=== PATIENT | male | born 1965 | race Caucasian/White ===

== ENCOUNTER 2020-11-30 14:57 | Inpatient (IN) | payer MEDICAID, OTHER ==
[~2020-11-30] VITALS: Ht 190.5 cm; Wt 86.8 kg
[2020-11-30] MEDS ORDERED: CEPH500C PO (15:05)
[2020-11-30] MEDS ORDERED: OXYC1TAB23 PO (15:05)
[2020-11-30] MEDS ORDERED: SUBO2MIS SL (15:05)
[2020-11-30 17:14] LABS: BASO % 0.6 % (0.0-1.0); EOS # 0.1 10^3/uL (0.0-0.5); EOS % 5.2 % (0.0-3.0); HEMATOCRIT 32.6 % (42.0-52.0); HEMOGLOBIN 10.7 g/dl (13.5-17.5); LYMPH # 0.4 10^3/uL (1.5-5.0); MEAN CORPUSCULAR HEMOGLOBIN 31.5 pg (27.0-33.0); MEAN CORPUSCULAR HGB CONC 32.8 g/dl (32.0-36.5); MEAN CORPUSCULAR VOLUME 95.9 fl (80.0-96.0); MONO # 0.2 10^3/uL (0.0-0.8); MONO % 14.3 % (2.0-8.0); NEUTROPHILS % 53.3 % (36.0-66.0); WHITE BLOOD COUNT 1.5 10^3/uL (4.0-10.0)
[2020-11-30 17:27] LABS: INR 1.2; PROTHROMBIN TIME 15.7 SECONDS (12.7-14.5)
[2020-11-30 17:28] LABS: PARTIAL THROMBOPLASTIN TIME 33.8 SECONDS (25.9-37.0)
[2020-11-30] MEDS ORDERED: HOME MED LIST COMPLETE! XX SCH (17:30)
[2020-11-30 17:32] LABS: RSV AMPLIFICATION NEGATIVE (NEGATIVE)
[2020-11-30 17:43] LABS: NEUTROPHILS # 0.8 10^3/uL (1.5-8.5); PLATELET COUNT, AUTOMATED 56 10^3/uL (150-450)
[2020-11-30 17:52] LABS: ALBUMIN 2.1 GM/DL (3.2-5.2); ALT/SGPT 29 U/L (12-78); BILIRUBIN,DIRECT 0.7 MG/DL (0.0-0.2); BILIRUBIN,TOTAL 1.1 MG/DL (0.2-1.0); BLOOD UREA NITROGEN 10 MG/DL (7-18); C REACTIVE PROTEIN QUANTITATIV 0.85 MG/DL (0.00-0.30); CALCIUM LEVEL 8.1 MG/DL (8.5-10.1); CARBON DIOXIDE LEVEL 30 MEQ/L (21-32); CHLORIDE LEVEL 105 MEQ/L (98-107); CK-MB VALUE MASS 2.1 NG/ML (<3.6); CPK CREATINE PHOSPHOKINASE 52 U/L (39-308); CREATININE FOR GFR 0.55 MG/DL (0.70-1.30); FREE T4 0.95 NG/DL (0.76-1.46); GLOMERULAR FILTRATION RATE > 60.0 (>56); GLUCOSE, FASTING 109 MG/DL (70-100); MB/CK RELATIVE INDEX 4.04 (< OR =4); NT-PRO BNP 346 PG/ML (<125); POTASSIUM SERUM 3.8 MEQ/L (3.5-5.1); SODIUM LEVEL 141 MEQ/L (136-145); TOTAL PROTEIN 7.9 GM/DL (6.4-8.2); TROPONIN I < 0.02 NG/ML (< 0.10)
[2020-11-30 18:01] LABS: ERYTHROCYTE SEDIMENTATION RATE 67 mm/hr (0-20)
[2020-11-30] MEDS ORDERED: ISOVUE-370 76% 100ML VIAL As Ordered ONE (18:01)
--- NOTE | 2020-11-30 18:32 | REP ---
INDICATION: edema r/o dvt COMPARISON: None. TECHNIQUE: Real time compression and duplex Doppler interrogation of the bilateral lower extremity deep venous system is performed. Compression ultrasound is performed of the bilateral peroneal and posterior tibial veins. FINDINGS: Bilaterally, the common femoral, superficial femoral and popliteal veins are fully compressible with transducer pressure and demonstrate normal spontaneous and phasic flow, without evidence of deep venous thrombosis. The peroneal and posterior tibial veins could not be seen due to body habitus. IMPRESSION: No evidence of deep venous thrombosis of the bilateral lower extremity femoral popliteal venous system. <Electronically signed by Gagandeep Mckay > 11/30/20 [id number]
[2020-11-30] MEDS ORDERED: ceFAZolin SOD 1 GM in D5W MINI-BAG PLUS 50 ML IV ONE (19:40)
[2020-11-30] MEDS ORDERED: MAALOX 30 ML SUSP *UDC PO PRN (19:50)
[2020-11-30] MEDS ORDERED: LORazepam 2 MG TAB PO PRN (19:50)
[2020-11-30] MEDS ORDERED: MOM 30ML SUSPENSION UDC PO PRN (19:50)
--- NOTE | 2020-11-30 19:54 | HPEPDOC ---
[facility] Medical History & Physical Date of Admission Nov 30, 2020 Date of Service: Nov 30, 2020 Attending Physician: JOANNE KHAN MD History and Physical TIME OF SERVICE: 815pm CHIEF COMPLAINT: leg pain HISTORY OF PRESENT ILLNESS: About 1 week ago was discharged from [facility] in [facility] after being admitted for management of RLE cellulitis. He was discharged with cephalexin and pain medications which he finished about 1 day ago. Today he came to our ER because the right lower leg pain, redness and swelling got worse and are spreading up the middle part of his right upper leg. He denied having fever, chills, nausea or vomiting. He has 2 scabs on his right leg one at the middle part of the ankle which has been picking and another one at the lateral part of the right upper leg. REVIEW OF SYSTEMS: 10-point review of systems negative except as listed in HPI PAST MEDICAL/ SURGICAL HISTORY: Hepatitis C (he reports being told that he was not a candidate for treatment and that his viral titres were low), Hepatosplenomegaly, Pancytopenia, abdominal biopsy FAMILY HISTORY: Cancer SOCIAL HISTORY: He recently moved back to the area from [facility], he smokes tobacco products, drinks alcohol and admits to using heroin and cocaine ALLERGIES: Please see below. HOME MEDICATIONS: Please see below. PHYSICAL EXAMINATION: Vital Signs Date Time Temp Pulse Resp B/P (MAP) Pulse Ox O2 Delivery O2 Flow Rate FiO2 11/30/20 14:57 98.0 95 20 123/78 (93) 100 Room Air GENERAL APPEARANCE: slim build / well developed/ NAD HEENT: temporal wasting / EOMI / MMM&P CARDIOVASCULAR: RRR/NMRG LUNGS: CTAB on RA ABDOMEN: contour flat MUSCULOSKELETAL: NCAT / VINICIO x 4 extremities INTEGUMENT: his is tanned/ has several tattoos / rubor, dalor and calor of the right lower leg / he also has a linear streak of rubor following the lymphatic tract along the medial aspect of the right upper leg / he has an open scab superficial to the right medial malleolus NEUROLOGICAL: CN 2-12 grossly intact / speech not dysarthric PSYCHIATRIC: A&O x 3 / able to understand and follow all commands LABORATORY DATA: IMAGING: RLE US IMPRESSION: No evidence of deep venous thrombosis of the bilateral lower extremity femoral popliteal venous system. CT chest final report pendingbut per there was hepatosplenomegaly and an opacity at the liver with recommendations to obtain MRI of the liver to better characterize the lesion. MICROBIOLOGY: Respiratory panel neg ASSESSMENT: is a 55 yr old w a hx of polysubstance abuse, pancytopenia, and Hep C (cleared infection ?) who is admitted primarily for evaluation of RLE pain, redness and swelling with lymphangitis. PLAN: 1 SIRS vs Sepsis 2/2 right lower leg redness pain and swelling with right upper leg lymphangitis Possibly due to cellulitis or malignancy or other cause TBD SIRs criteria include HR of 95 w WBC # of 1.5 The patient mentioned that the doctors at [facility] told him they were trying to figure out where his infection was coming from which further raises suspicion that this is not just cellulitis. The pattern of distribution which includes the lymph node tract is atypical for cellulitis. Additionally his ALT-70 Score to diagnose LE Cellulitis score is only 4 which indicates that this may not be cellulitis and that we should consult the Dermatology or ID service for additional recommendations. He is not c/o severe pain and the CPK is wnl therefore this is unlikely necrotizing fasciitis Plan: admit to medical floor / fall precautions / elevate leg / f/u blood cx / c/w Cefazolin for MSSA and beta hemolytic strep + Vancomycin for MRSA and beta hemolytic strep / will ask the day time tem to consult ID / request records from 2 Pancytopenia with monocytosis Plan: f/u peripheral smear / trend CBC 3 Hepatosplenomegaly Possibly due to portal HTN Plan: check Hep panel / he declined HIV testing / & f/u on MRI of the liver 4 Polysubstance abuse Plan: fall and seizure precautions/ Ativain, Thiamine and folic acid per CIWA protocol / smoking cessation education /c/w suboxone 5 Homelessness Plan; PFS consult has been placed DVT px w SCDs (His Xiao Prediction Score to determine the in-patient risk of VTE & need for anticoagulation is 4. Despite the high score we will use SCDs because he is at increased risk of bleeding due to his anemia and thrombocytopenia) Dispo: home after at least 2 midnights stay Vital Signs Vital Signs Date Time Temp Pulse Resp B/P (MAP) Pulse Ox O2 Delivery O2 Flow Rate FiO2 11/30/20 18:00 81 16 136/80 (98) 99 Room Air 11/30/20 14:57 98.0 Laboratory Data Labs 24H Laboratory Tests 2 11/30/20 16:38: Immature Granulocyte % (Auto) 0.6, Neutrophils (%) (Auto) 53.3, Lymphocytes (%) (Auto) 26.0, Monocytes (%) (Auto) 14.3H, Eosinophils (%) (Auto) 5.2H, Basophils (%) (Auto) 0.6, Neutrophils # (Auto) 0.8L, Lymphocytes # (Auto) 0.4L, Monocytes # (Auto) 0.2, Eosinophils # (Auto) 0.1, Basophils # (Auto) 0.0, Nucleated Red Blood Cells % (auto) 0.0, Immature Platelet Fraction 3.3, Erythrocyte Sed imentation Rate 67H, Prothrombin Time 15.7H, Prothromb Time International Ratio 1.20, Activated Partial Thromboplast Time 33.8, Anion Gap 6L, Glomerular Filtration Rate > 60.0, Calcium Level 8.1L, Total Bilirubin 1.1H, Direct Bilirubin 0.7H, Aspartate Amino Transf (AST/SGOT) 38H, Alanine Aminotransferase (ALT/SGPT) 29, Alkaline Phosphatase 65, Total Creatine Kinase 52, Creatine Kinase MB 2.1, Creatine Kinase MB Relative Index 4.04H, Troponin I < 0.02, C- Reactive Protein, Quantitative 0.85H, EC-Aaq-T-Type Natriuretic Peptide 346H, Total Protein 7.9, Albumin 2.1L, Albumin/Globulin Ratio 0.4, Thyroid Stimulating Hormone (TSH) 3.270, Free Thyroxine 0.95 11/30/20 16:45: Coronavirus (COVID-19)(PCR) NEGATIVE, Influenza Type A (RT-PCR) NEGATIVE, Influenza Type B (RT-PCR) NEGATIVE, Respiratory Syncytial Virus (PCR) NEGATIVE CBC/BMP Laboratory Tests 11/30/20 16:38 Microbiology Microbiology 11/30/20 Blood Culture, Received Pending 11/30/20 Blood Culture, Received Pending Home Medications Scheduled Buprenorphine HCl/Naloxone HCl (Suboxone 2 mg-0.5 mg Sl Film) 1 Each Film, 2 STRIP SL DAILY HAS NO SCRIPT FOR SUBOXONE. Cephalexin (Cephalexin) 500 Mg Capsule, 500 MG PO BID GIVEN AT [facility] [place] Scheduled PRN Oxycodone HCl/Acetaminophen (Oxycodone-Acetaminophen 5-325) 1 Each Tablet, 1 TAB PO TID PRN for PAIN LEVEL 1-6 GIVEN AT [facility] [place] Allergies Coded Allergies: No Known Allergies (Unverified , 11/30/20) JOANNE KHAN MD Nov 30, 2020 19:54
[2020-11-30] MEDS: THIAMINE 100 MG TAB PO SCH (20:07)
--- NOTE | 2020-11-30 20:18 | ECGEPIP ---
[facility] - ED Test Date: 2020-11-30 Pat Name: FRANCK IZQUIERDO Department: Room: - Gender: Male Geomagnetist: Radha HORNE : 1965 Requested By: ROHINI Gomes Order Number: [id number] Reading MD: Lisa Martinez Measurements Intervals [place] Rate: 83 P: 54 LA: 164 QRS: -35 QRSD: 106 T: 52 QT: 408 QTc: 479 Interpretive Statements Normal sinus rhythm Left axis deviation early r progression Nonspecific T wave abnormality Prolonged QT No prior Electronically Signed on 11-30-2020 20:18:46 EDT by Lisa Martinez
[2020-11-30] MEDS ORDERED: VANCOMYCIN HCL 1,000 MG, VIAL MATE ADAPTER 1 EACH in NS 250 ML IV ONE ×2 (21:00→22:00)
[2020-11-30] MEDS ORDERED: KETOROLAC 30 MG/ML 1ML VIAL IV ONE (21:25)
[2020-12-01 00:35] VITALS: BP 130/81
[2020-12-01] MEDS ORDERED: ceFAZolin SOD 1 GM in D5W MINI-BAG PLUS 50 ML IV SCH (04:00)
[2020-12-01 06:00] VITALS: BP 135/83
[2020-12-01] MEDS ORDERED: VANCOMYCIN HCL 1,000 MG, VIAL MATE ADAPTER 1 EACH in NS 250 ML IV SCH (06:00)
[2020-12-01 06:16] LABS: HEMATOCRIT 29.4 % (42.0-52.0); HEMOGLOBIN 9.8 g/dl (13.5-17.5); MEAN CORPUSCULAR HEMOGLOBIN 31.2 pg (27.0-33.0); MEAN CORPUSCULAR HGB CONC 33.3 g/dl (32.0-36.5); MEAN CORPUSCULAR VOLUME 93.6 fl (80.0-96.0); RED BLOOD COUNT 3.14 10^6/uL (4.30-6.10); WHITE BLOOD COUNT 1.1 10^3/uL (4.0-10.0)
[2020-12-01 06:20] LABS: PLATELET COUNT, AUTOMATED 50 10^3/uL (150-450)
[2020-12-01 06:54] LABS: ALBUMIN 1.6 GM/DL (3.2-5.2); ALT/SGPT 25 U/L (12-78); BILIRUBIN,TOTAL 0.9 MG/DL (0.2-1.0); BLOOD UREA NITROGEN 9 MG/DL (7-18); CALCIUM LEVEL 7.9 MG/DL (8.5-10.1); CARBON DIOXIDE LEVEL 29 MEQ/L (21-32); CHLORIDE LEVEL 108 MEQ/L (98-107); CREATININE FOR GFR 0.43 MG/DL (0.70-1.30); GLOMERULAR FILTRATION RATE > 60.0 (>56); GLUCOSE, FASTING 103 MG/DL (70-100); POTASSIUM SERUM 3.8 MEQ/L (3.5-5.1); SODIUM LEVEL 139 MEQ/L (136-145); TOTAL PROTEIN 7.2 GM/DL (6.4-8.2)
[2020-12-01] MEDS ORDERED: PROHANCE 279.3MG/ML 15ML VIAL As Ordered ONE (08:25)
[2020-12-01] MEDS ORDERED: PROHANCE 279.3MG/ML 5ML VIAL As Ordered ONE (08:25)
--- NOTE | 2020-12-01 08:53 | REP ---
INDICATION: R/O PE. COMPARISON: None. TECHNIQUE: CT angiogram chest performed following the intravenous administration of 100 cc of Isovue 370. Sagittal and coronal reconstruction images are performed. FINDINGS: Lungs: Clear, no infiltrate or nodule. Mediastinum: No adenopathy. Pulmonary arteries: No evidence of pulmonary embolism. Rand: No adenopathy. Axilla: No adenopathy. Pleura: No effusion. Heart: Not enlarged. Thoracic aorta: No aneurysm or dissection. Upper abdominal structures: The liver has a cirrhotic appearance. There is massive splenomegaly. The portal venous system is dilated suggesting portal hypertension. Visualized osseous structures: Unremarkable. IMPRESSION: No CT evidence of pulmonary embolism. No infiltrate seen. The liver has a cirrhotic appearance. There are findings of portal hypertension with massive splenomegaly. A preliminary report was provided by virtual Radiology at the time of the exam. <Electronically signed by Gagandeep Mckay > 12/01/20 0887
[2020-12-01] MEDS: THIAMINE 100 MG TAB PO SCH ×2 (10:00→20:13)
[2020-12-01] MEDS: MULTIVITAMINS/MINERALS THERAP 1 TAB PO SCH (10:00)
[2020-12-01] MEDS: BUPRENORPHINE/NALOXONE 2-0.5MG SUBLINGUAL TABLET(SUBOXONE) SL SCH (10:00)
[2020-12-01] MEDS: FOLIC ACID 1 MG TAB PO SCH (10:00)
--- NOTE | 2020-12-01 10:24 | REP ---
INDICATION: hx of Hep C / elevated LFTs / f/u on liver opacity (CT chest. COMPARISON: CT angiogram chest 11/30/2020. TECHNIQUE: Multiple sequences obtained in the axial coronal planes prior to and following the intravenous administration of 16 mL ProHance. FINDINGS: The liver has a cirrhotic appearance. No enhancing mass is seen. Dilated portal venous system is compatible with portal hypertension. There are large splenorenal varices. There is severe splenomegaly. The spleen measures 20 cm in length. The adrenals and pancreas are unremarkable as are the visualized kidneys. There is no significant adenopathy. There is a small amount of perihepatic ascites. The gallbladder is grossly unremarkable. There is no biliary dilatation or pancreatic duct dilatation. IMPRESSION: Cirrhosis of the liver with portal hypertension, splenomegaly and splenorenal varices. No suspicious enhancing liver mass. <Electronically signed by Gagandeep Mckay > 12/01/20 1020
[2020-12-01] MEDS ORDERED: CEFEPIME HCL 1 GM in D5W MINI-BAG PLUS 50 ML IV SCH (11:30)
[2020-12-01] MEDS: CEFEPIME HCL 2 GM in D5W MINI-BAG PLUS 50 ML IV SCH ×2 (12:40→20:13)
[2020-12-01 13:11] LABS: HEPATITIS A ANTIBODY IGM NEGATIVE (NEGATIVE); HEPATITIS B CORE ANTIBODY IGM NEGATIVE (NEGATIVE); HEPATITIS B SURFACE ANTIGEN NEGATIVE (NEGATIVE)
[2020-12-01 13:13] LABS: HEPATITIS C VIRUS ABY INDEX 6.9 INDEX (<0.8)
[2020-12-01 14:00] VITALS: BP 127/87
[2020-12-01] MEDS: VANCOMYCIN HCL 750 MG, VIAL MATE ADAPTER 1 EACH in NS 250 ML IV SCH ×2 (14:24→21:36)
[2020-12-01] MEDS: VANCOMYCIN HCL 500 MG in D5W MINI-BAG PLUS 100 ML IV SCH ×2 (16:23→22:42)
--- NOTE | 2020-12-01 16:38 | IPNPDOC ---
Text Note Date of Service The patient was seen on 12/01/20. NOTE SUBJECTIVE: Mr. Willis is a 55-year-old male with a h/o hepatitis C, hepatosplenomegaly, pancytopenia, and cellulitis who presents with right lower extremity cellulitis. Patient was previously treated at a hospital in [place] 1 week ago prior to arrival; he was given oxycodone and oral cephalexin on discharge. Patient has noticed his right lower extremity is swollen and appear red below the knee with dryness and excoriations for a few weeks. However, the patient says the swelling has improved from yesterday. He able to walk with mild discomfort. Patient denies headaches, chest pain, palpitations, SOB, abdominal pain, nausea, vomiting, and diarrhea. The patient also mentions multiple presyncopal episodes with exertion for the past few months. He experienced these episodes when running out of a car, trekking through the [place], getting off the bus with multiple bags, and going up a flight of stairs with multiple bags; patient reports being homeless. He never lost consciousness but has SOB, dizziness, sweating, and leg shaking, eventually causing him to fall. This episodes only occur with exertion, not with rest. ROS: CONSTITUTIONAL: Denies fevers, chills. HEENT: Denies headaches, dizziness, changes in vision, difficulty swallowing. CARDIOVASCULAR: Denies chest pain, palpitations. RESPIRATORY: Denies SOB. GASTROINTESTINAL: Has constipation 2/2 opioid use. Denies nausea, vomiting, diarrhea, abdominal pain. GENITOURINARY: Denies pain and burning on urination, changes in urinary frequency. EXTREMITIES: Denies weakness in upper extremities bilaterally. NEUROLOGIC: Denies loss of consciousness. OBJECTIVE: VITALS: Please see below. PHYSICAL EXAM: GENERAL: Patient appears stated age and in no acute distress. HEENT: NC, AT. EOMI. PERRLA. Mucus membranes moist. CARDIOVASCULAR: RRR. No murmurs, rubs, or gallops. 2+ radial pulses bilaterally. RESPIRATORY: Clear to auscultation bilaterally. No wheezing, rales or rhonchi. No labored breathing or accessory muscle use. ABDOMEN: Bowel sounds present. Firm, non-tender to palpation in all 4 quadrants and suprapubic region. Healed longitudinal scar from xiphoid to umbilicus 2/2 liver biopsy (2003). EXTREMITIES: Sensation intact in upper and lower extremities bilaterally. Tender to palpation in lower extremity bilaterally. 1+ edema on left lower extremities. Right lower extremity is firm and tender to palpation. Dorsalis pedis and posterior tibial pulses present bilaterally. SKIN: Right lower extremity is dry with rubor and excoriations. Excoriations appear to be healing. No active bleeding present. There are few lesions that are open 2/2 the patient's picking. Skin is thickened and appears to have a red- purple color. IV tract portillo on upper extremities bilaterally. NEUROLOGIC: CN II-XII gross intact. PSYCH: Mood appears stable. IMAGIN12/01/20 MRI Abdomen Impression: "Cirrhosis of the liver with portal hypertension, splenomegaly and splenorenal varices. No suspicious enhancing liver mass." ASSESSMENT/PLAN: Mr. Willis is a 55-year-old male with a h/o hepatitis C, hepatosplenomegaly, pancytopenia, cellulitis, and presyncopal episodes who presents with right lower extremity cellulitis. # RLE cellulitis - Improving; patient states swelling has gone down. - Continue vancomycin. - Discontinued cefazolin and switched to cefepime. - Blood cultures pending. # Presyncopal episodes most likely 2/2 physical exhaustion - Troponins negative; repeat troponins pending. - CTA chest does not show evidence of pulmonary emboli. - Bilateral lower extremity vascular US does not show evidence of DVTs. - 2D echo ordered. - 48Hr telemetry ordered. - ED EKG showed normal sinus rhythm without abnormal ST segment changes. Repeat EKG pending. - Orthostatic vital signs ordered. - Fall precautions ordered. # Exertional dyspnea 2/2 possible ACS vs deconditioning - Troponins negative; repeat troponins pending. - CTA chest does not show evidence of pulmonary emboli. - Bilateral lower extremity vascular US does not show evidence of DVTs. - ED EKG showed normal sinus rhythm without abnormal ST segment changes. Repeat EKG pending. - 2D echo ordered. - 48Hr telemetry ordered. - Patient should follow up outpatient for possible undiagnosed COPD vs asthma vs ACS. # Hepatosplenomegaly and pancytopenia 2/2 liver cirrhosis - MRI abdomen showed liver cirrhosis with portal HTN, splenomegaly, and splenorenal varices. - Patient should follow up outpatient for hepatosplenomegaly and pancytopenia 2/2 cirrhosis. # Polysubstance use disorder - Monitor for withdrawal symptoms. - Patient does express desire to discontinue all drug use (alcohol, cocaine, methamphetamine, IV heroine) and get sober. - Folic acid, thiamine, lorazepam ordered. - Continue home suboxone. - financial services professional consult ordered. - Patient should follow up outpatient for sobriety. # Hepatitis C - Hep C Ab Index at 6.9 - HCV RNA qualitative test pending. - Patient should follow up outpatient for Hepatitis C treatment and management. DVT prophylaxis: TEDs and sequentials. VS,Fishbone, I+O VS, Fishbone, I+O Laboratory Tests 11/30/20 16:38 12/01/20 05:57 Vital Signs Date Time Temp Pulse Resp B/P (MAP) Pulse Ox O2 Delivery O2 Flow Rate FiO2 12/01/20 14:00 97.1 77 18 127/87 (100) 98 Room Air I&O- Last 24 Hours up to 6 AM 12/01/20 06:00 Intake Total 550 ml Output Total 150 ml Balance 400 ml GME ATTESTATION GME ATTESTATION My faculty preceptor for this patient encounter was physically present during the encounter and was fully available. All aspects of the patient interview, examination, medical decision making process, and medical care plan development were reviewed and approved by the faculty preceptor. The faculty preceptor is aware and concurs with the plan as stated in the body of this note and will attest to such by his/her cosignature. CLAUDIO AGUILERA OMS-3 Dec 01, 2020 16:38
[2020-12-01 18:34] LABS: CK-MB VALUE MASS 1.7 NG/ML (<3.6); CPK CREATINE PHOSPHOKINASE 49 U/L (39-308); MB/CK RELATIVE INDEX 3.47 (< OR =4); TROPONIN I < 0.02 NG/ML (< 0.10)
[2020-12-01 22:00] VITALS: BP 135/91
[2020-12-01 22:43] VITALS: BP 133/83
[2020-12-01 23:55] VITALS: BP_SYST 129; BP_SYST 131; BP_SYST 132; BP_DIAS 84; BP_DIAS 85; BP_DIAS 87
[2020-12-02] MEDS: CEFEPIME HCL 2 GM in D5W MINI-BAG PLUS 50 ML IV SCH ×2 (04:53→12:00)
[2020-12-02 05:42] LABS: HEMATOCRIT 31.2 % (42.0-52.0); HEMOGLOBIN 10.5 g/dl (13.5-17.5); MEAN CORPUSCULAR HEMOGLOBIN 31.5 pg (27.0-33.0); MEAN CORPUSCULAR HGB CONC 33.7 g/dl (32.0-36.5); MEAN CORPUSCULAR VOLUME 93.7 fl (80.0-96.0); RED BLOOD COUNT 3.33 10^6/uL (4.30-6.10); WHITE BLOOD COUNT 1.4 10^3/uL (4.0-10.0)
[2020-12-02 05:48] LABS: PLATELET COUNT, AUTOMATED 56 10^3/uL (150-450)
[2020-12-02 06:00] VITALS: BP 132/82
[2020-12-02 06:07] LABS: BLOOD UREA NITROGEN 8 MG/DL (7-18); CALCIUM LEVEL 7.7 MG/DL (8.5-10.1); CARBON DIOXIDE LEVEL 28 MEQ/L (21-32); CHLORIDE LEVEL 107 MEQ/L (98-107); CREATININE FOR GFR 0.38 MG/DL (0.70-1.30); GLOMERULAR FILTRATION RATE > 60.0 (>56); GLUCOSE, FASTING 100 MG/DL (70-100); POTASSIUM SERUM 3.9 MEQ/L (3.5-5.1); SODIUM LEVEL 138 MEQ/L (136-145); VANCOMYCIN LEVEL TROUGH 11.4 UG/ML (10.0-20.0)
[2020-12-02] MEDS: VANCOMYCIN HCL 750 MG, VIAL MATE ADAPTER 1 EACH in NS 250 ML IV SCH (06:13)
[2020-12-02] MEDS: VANCOMYCIN HCL 500 MG in D5W MINI-BAG PLUS 100 ML IV SCH (07:45)
[2020-12-02] MEDS: MULTIVITAMINS/MINERALS THERAP 1 TAB PO SCH (07:45)
[2020-12-02] MEDS: FOLIC ACID 1 MG TAB PO SCH (07:45)
[2020-12-02] MEDS: THIAMINE 100 MG TAB PO SCH (07:45)
[2020-12-02] MEDS: BUPRENORPHINE/NALOXONE 2-0.5MG SUBLINGUAL TABLET(SUBOXONE) SL SCH (09:25)
--- NOTE | 2020-12-02 09:49 | IPNPDOC ---
Text Note Date of Service The patient was seen on 12/02/20. NOTE SUBJECTIVE: Mr. Willis is a 55-year-old male with a h/o hepatitis C, hepatosplenomegaly, pancytopenia, and cellulitis who presents with right lower extremity cellulitis. The patient says the swelling has improved from yesterday and he is no longer picking at his excoriations. He able to walk with mild discomfort. He has some labored breathing with exertion when walking from his bed to the bathroom. Patient denies headaches, chest pain, palpitations, abdominal pain, nausea, vomiting, and diarrhea. ROS: CONSTITUTIONAL: Denies fevers, chills. HEENT: Denies headaches, dizziness, changes in vision, difficulty swallowing. CARDIOVASCULAR: Denies chest pain, palpitations. RESPIRATORY: Mild SOB on exertion. GASTROINTESTINAL: Denies nausea, vomiting, abdominal pain, diarrhea, constipation. GENITOURINARY: Denies pain and burning on urination, changes in urination. EXTREMITIES: 6/10 pain in his right lower extremity. Denies weakness in upper extremities bilaterally. NEUROLOGIC: Denies loss of consciousness. OBJECTIVE: VITALS: Please see below. PHYSICAL EXAM: GENERAL: Patient appears stated age and in no acute distress. HEENT: NC, AT. EOMI. Mucus membranes moist. CARDIOVASCULAR: RRR. No murmurs, rubs, or gallops. 2+ radial pulses bilaterally. RESPIRATORY: Clear to auscultation bilaterally. No wheezing, rales or rhonchi. No labored breathing or accessory muscle use at rest. No JVD present. ABDOMEN: Bowel sounds present. Firm, non-tender to palpation in all 4 quadrants and suprapubic region. Healed longitudinal scar from xiphoid to umbilicus 2/2 liver biopsy (2003). EXTREMITIES: Sensation intact in upper and lower extremities bilaterally. Tender to palpation in lower extremity bilaterally. Edema present in lower extremities bilaterally. Right lower extremity is firm, tender to palpation, and dark red in rubor (margins have been marked with skin marker). Dorsalis pedis and posterior tibial pulses present bilaterally. SKIN: Right lower extremity is dry and scaly and excoriations. Excoriations are improving and healing. No active bleeding present. Skin is thickened and appears to have a dark red-purple color. IV tract portillo on upper extremities bilaterally. NEUROLOGIC: A&O X4. PSYCH: Mood appears stable. ASSESSMENT/PLAN: Mr. Willis is a 55-year-old male with a h/o hepatitis C, hepatosplenomegaly, pancytopenia, cellulitis, and presyncopal episodes who presents with right lower extremity cellulitis. # RLE cellulitis - Improving; swelling has gone down. - Continue vancomycin and cefepime. - Blood cultures negative. # Exertional dyspnea 2/2 possible ACS vs deconditioning - Repeat troponins negative. - Repeat EKG is normal sinus rhythm, no changes evident from previous EKG. - 2D echo ordered. - 48Hr telemetry ordered. - Patient should follow up outpatient for possible undiagnosed COPD vs asthma vs ACS. # Presyncopal episodes most likely 2/2 physical exhaustion - Repeat troponins negative. - 2D echo ordered. - 48Hr telemetry ordered. - Repeat EKG is normal sinus rhythm, no changes evident from previous EKG. - Orthostatic vital signs ordered. - Fall precautions ordered. # Hepatosplenomegaly and pancytopenia 2/2 liver cirrhosis - MRI abdomen showed liver cirrhosis with portal HTN, splenomegaly, and splenore nal varices. - Patient should follow up outpatient for hepatosplenomegaly and pancytopenia 2/2 cirrhosis. # Polysubstance use disorder - Monitor for withdrawal symptoms. - Patient does express desire to discontinue all drug use (alcohol, cocaine, methamphetamine, IV heroine) and get sober. - Folic acid, thiamine, lorazepam, CIWA protocol ordered. - Continue home suboxone. - business services clerk consult ordered; placement pending. - Patient should follow up outpatient for sobriety. # Hepatitis C - Hep C Ab Index at 6.9 - HCV RNA qualitative test pending. - Patient should follow up outpatient for Hepatitis C treatment and management. DVT prophylaxis: TEDs and sequentials. VS,Fishbone, I+O VS, Fishbone, I+O Laboratory Tests 12/02/20 05:24 Vital Signs Date Time Temp Pulse Resp B/P (MAP) Pulse Ox O2 Delivery O2 Flow Rate FiO2 12/02/20 06:00 70 132/82 12/02/20 06:00 97.3 18 97 Room Air I&O- Last 24 Hours up to 6 AM 12/02/20 06:00 Intake Total 3260 ml Output Total 4500 ml Balance -1240 ml GME ATTESTATION GME ATTESTATION My faculty preceptor for this patient encounter was physically present during the encounter and was fully available. All aspects of the patient interview, examination, medical decision making process, and medical care plan development were reviewed and approved by the faculty preceptor. The faculty preceptor is aware and concurs with the plan as stated in the body of this note and will attest to such by his/her cosignature. CLAUDIO AGUILERA OMS-3 Dec 02, 2020 09:49
[2020-12-02] MEDS ORDERED: VITMTA PO (11:04)
[2020-12-02] MEDS ORDERED: AUGM875T28 PO (11:05)
--- NOTE | 2020-12-02 16:54 | DS.PDOC ---
Discharge Summary General Date of Admission Nov 30, 2020 at 19:48 Date of Discharge December 02, 2020 Attending Physician: ZACHARY URRUTIA MD Discharge Summary PROCEDURES PERFORMED DURING STAY: None. ADMITTING DIAGNOSES: - SIRS vs Sepsis 2/2 right lower leg redness pain and swelling with right upper leg lymphangitis - Pancytopenia with monocytosis - Hepatosplenomegaly - Polysubstance abuse - Homelessness DISCHARGE DIAGNOSES: - Right LE cellulitis - Exertional dyspnea 2/2 possible ACS vs deconditioning - Presyncopal episodes most likely 2/2 physical exhaustion - Hepatosplenomegaly and pancytopenia 2/2 liver cirrhosis - Polysubstance use disorder - Hepatitis C COMPLICATIONS/CHIEF COMPLAINT: Right LE redness and swelling. HISTORY OF PRESENT ILLNESS: Mr. Willis is 55-year-old male with a h/o hepatitis C who presented to the ED with right lower leg pain, redness, and swelling that had gotten worse and spread to the middle part of his upper right leg. About 1 week ago, he was discharged from [facility] in [place] for RLE cellulitis with oxycodone and oral cephalexin which he finished. He was on a bus ride for 3 days right after his discharge and arrived in [place]. In the ED, the patient was found to be pancytopenic with monocytosis. Lower extremity vascular US did not show evidence of DVTs present. CTA chest did not show evidence of pulmonary emboli, but it did show evidence of liver cirrhosis, portal hypertension, and hepatosplenomegaly. Blood cultures were drawn and the patient was given 1 dose of IV cefazolin. HOSPITAL COURSE: On, admission, the patient was placed on CIWA protocol with multivitamin, thiamine and folic acid for polysubstance use disorder. He was started on IV vancomycin and cefazolin for RLE cellulitis. Abdominal MRI w/o contrast showed liver cirrhosis with portal hypertension, splenomegaly, and splenorenal varices. Serology was positive for hepatitis C antibodies. The patient was aware of his h/o hepatitis C and liver cirrhosis. He was told to follow up outpatient for treatment and management. On the first hospital day, the patient was switched from cefazolin to cefepime and continued on vancomycin for RLE cellulitis. The patient showed improvement with reduced swelling, redness, and excoriations in his right lower extremity. Blood cultures were negative. On discharge, the patient was advised not to pick at his excoriations and he was given Augmentin 825mg BID for 5 days. During the hospital stay, the patient described a h/o multiple episodes of presyncope and dyspnea on exertion. While inpatient, he was noted to have some labored breathing when walking to and from the bathroom. However, patient was asymptomatic and he did not have any acute episodes of syncope or dyspnea during his hospital stay. Cardiac marker panels were negative. EKGs showed normal sinus rhythm. Orthostatic vital signs were stable. The patient was placed on a 2g sodium restriction diet. The patient was advised to find a PCP to follow up with outpatient for possible ACS and COPD. The patient was recently homeless, but the patient did say he had a relative he could stay with when discharged. He expressed desires to maintain sobriety and manage his health issues. DISCHARGE MEDICATIONS: Please see below. ALLERGIES: Please see below. PHYSICAL EXAMINATION ON DISCHARGE: VITALS: Please see below. PHYSICAL EXAM: GENERAL: Patient appears stated age and in no acute distress. HEENT: NC, AT. EOMI. Mucus membranes moist. CARDIOVASCULAR: RRR. No murmurs, rubs, or gallops. 2+ radial pulses bilaterally. RESPIRATORY: Clear to auscultation bilaterally. No wheezing, rales or rhonchi. No labored breathing or accessory muscle use at rest. No JVD present. ABDOMEN: Bowel sounds present. Firm, non-tender to palpation in all 4 quadrants and suprapubic region. Healed longitudinal scar from xiphoid to umbilicus 2/2 liver biopsy (2003). EXTREMITIES: Sensation intact in upper and lower extremities bilaterally. Tender to palpation in lower extremity bilaterally. Edema present in lower extremities bilaterally. Right lower extremity is firm, tender to palpation, and dark red in rubor (margins have been marked with skin marker). Dorsalis pedis and posterior tibial pulses present bilaterally. SKIN: Right lower extremity is dry and scaly with excoriations. Excoriations are improving and healing. No active bleeding present. Skin is thickened and appears to have a dark red-purple color. IV tract portillo on upper extremities bilaterally. NEUROLOGIC: A&O X4. PSYCH: Mood appears stable. LABORATORY DATA: Please see below. IMAGIN11/30/20 CTA Chest Impression: "No CT evidence of pulmonary embolism. No infiltrate seen. The liver has a cirrhotic appearance. There are findings of portal hypertension with massive splenomegaly." 11/30/20 Bilateral LE Vascular US Impression: "No evidence of deep venous thrombosis of the bilateral lower extremity femoral popliteal venous system." 12/01/20 MRI Abdomen w/o FOL WITH Impression: "Cirrhosis of the liver with portal hypertension, splenomegaly and splenorenal varices. No suspicious enhancing liver mass." PROGNOSIS: Fair. ACTIVITY: As tolerated. DIET: 2g sodium restriction diet. DISPOSITION: Home, Self-Care. DISCHARGE INSTRUCTIONS: - Patient given Augmentin 825mg BID for 5 days for RLE cellulitis. - Patient given multivitamin for 14 days for poor oral intake and polysubstance use. - Patient should find and follow up with PCP in 2-3 days for workup and management of pancytopenia, exertional dyspnea and presyncopal episodes. Follow up 2D echo result - Patient should follow up with GI in 2-3 days for treatment and management of hepatosplenomegaly and pancytopenia 2/2 liver cirrhosis. - Patient should follow up with ID in 2-3 days for treatment and management of hepatitis C, and if cellulitis worsens. - Patient should follow up counseling regarding polysubstance use. - If symptoms worsen, please return to the ER for further evaluation. ITEMS TO FOLLOWUP ON ON OUTPATIENT: - RLE cellulitis; pending MRSA screening. - Exertional dyspnea - Presyncopal episodes - Hepatosplenomegaly - Pancytopenia - Liver cirrhosis - Hepatitis C pending HCV RNA qualitative analysis - Polysubstance use disorder - 2D echocardiogram DISCHARGE CONDITION: Stable. TIME SPENT ON DISCHARGE: 35 minutes. Vital Signs/I&Os Vital Signs Date Time Temp Pulse Resp B/P (MAP) Pulse Ox O2 Delivery O2 Flow Rate FiO2 12/02/20 06:00 70 132/82 12/02/20 06:00 97.3 18 97 Room Air I&O- Last 24 Hours up to 6 AM 12/02/20 06:00 Intake Total 3260 ml Output Total 4500 ml Balance -1240 ml Laboratory Data Labs 24H Laboratory Tests 2 12/01/20 17:44: Total Creatine Kinase 49, Creatine Kinase MB 1.7, Creatine Kinase MB Relative Index 3.47, Troponin I < 0.02 12/01/20 22:20: Troponin I < 0.02 12/02/20 05:24: Nucleated Red Blood Cells % (auto) 0.0, Immature Platelet Fraction 3.1, Anion Gap 3L, Glomerular Filtration Rate > 60.0, Calcium Level 7.7L, Vancomycin Level Trough 11.4 CBC/BMP Laboratory Tests 12/02/20 05:24 Microbiology Microbiology 11/30/20 Blood Culture - Preliminary, Resulted No growth after 24 hours . All specim... 11/30/20 Blood Culture - Preliminary, Resulted No growth after 24 hours . All specim... Discharge Medications Scheduled Amoxicillin/Potassium Clav (Augmentin 875-125 Tablet) 1 Each Tablet, 1 TAB PO BID Buprenorphine HCl/Naloxone HCl (Suboxone 2 mg-0.5 mg Sl Film) 1 Each Film, 2 STRIP SL DAILY, (Reported) HAS NO SCRIPT FOR SUBOXONE. Cephalexin (Cephalexin) 500 Mg Capsule, 500 MG PO BID, (Reported) GIVEN AT [facility] [place] Multivitamins (Thera M Plus Tablet) 1 Each Tablet, 1 TAB PO DAILY Scheduled PRN Oxycodone HCl/Acetaminophen (Oxycodone-Acetaminophen 5-325) 1 Each Tablet, 1 TAB PO TID PRN for PAIN LEVEL 1-6, (Reported) GIVEN AT HOSPITAL IN [place]. Allergies Coded Allergies: No Known Allergies (Unverified , 11/30/20) GME ATTESTATION GME ATTESTATION My faculty preceptor for this patient encounter was physically present during the encounter and was fully available. All aspects of the patient interview, examination, medical decision making process, and medical care plan development were reviewed and approved by the faculty preceptor. The faculty preceptor is aware and concurs with the plan as stated in the body of this note and will attest to such by his/her cosignature. CLAUDIO AGUILERA OMS-3 Dec 02, 2020 16:54 CHRISTIAN RAMON DO Dec 03, 2020 18:55
--- NOTE | 2020-12-02 18:11 | ECGEPIP ---
[facility] Test Date: 2020-12-01 Pat Name: FRANCK IZQUIERDO Department: Room: [place] [address] Gender: Male [employer] Machine Operator: JASMINE : [id number] Requested By: CHRISTIAN RAMON Order Number: [id number] Reading MD: Bg Arnold Measurements Intervals [place] Rate: 73 P: 59 MO: 166 QRS: -34 QRSD: 102 T: 51 QT: 424 QTc: 467 Interpretive Statements Normal sinus rhythm Left axis deviation ST & T wave abnormality, consider anterior ischemia Prolonged QT Similar to 11/30/20 Electronically Signed on 12-02-2020 18:11:34 EDT by Bg Arnold
== END 2020-12-02 14:16 | disposition home or self-care (01) | DRG 383 ==
LOC: M ED 14:57 → M ED INP 19:48 → M MSPAV 23:50
PROVIDERS: ADMIT Internal Medicine; ATTEND Internal Medicine
DX: L03.115 Cellulitis of right lower limb (principal); D61.818 Other pancytopenia; K74.60 Unspecified cirrhosis of liver; R16.2 Hepatomegaly with splenomegaly, not elsewhere classified; B19.20 Unspecified viral hepatitis C without hepatic coma; F17.210 Nicotine dependence, cigarettes, uncomplicated; F11.10 Opioid abuse, uncomplicated; F14.10 Cocaine abuse, uncomplicated; Z59.0 Homelessness; Z20.822 Contact with and (suspected) exposure to COVID-19; Z72.3 Lack of physical exercise; R06.09 Other forms of dyspnea

== ENCOUNTER 2021-02-12 03:04 | Observation (INO) | payer OTHER ==
[~2021-02-12] VITALS: Ht 190.5 cm; Wt 90.8 kg
[~2021-02-12 03:04] MED LIST: AUGM875T28 PO; CEPH500C PO; OXYC1TAB23 PO; SUBO2MIS SL; VITMTA PO
[2021-02-12 07:13] LABS: BASO % 0.6 % (0.0-1.0); EOS # 0.2 10^3/uL (0.0-0.5); EOS % 8.8 % (0.0-3.0); HEMATOCRIT 32.5 % (42.0-52.0); HEMOGLOBIN 10.8 g/dl (13.5-17.5); LYMPH # 0.4 10^3/uL (1.5-5.0); LYMPH % 22.2 % (24.0-44.0); MEAN CORPUSCULAR HEMOGLOBIN 31.1 pg (27.0-33.0); MEAN CORPUSCULAR HGB CONC 33.2 g/dl (32.0-36.5); MEAN CORPUSCULAR VOLUME 93.7 fl (80.0-96.0); MONO # 0.4 10^3/uL (0.0-0.8); MONO % 23.4 % (2.0-8.0); RED BLOOD COUNT 3.47 10^6/uL (4.30-6.10); WHITE BLOOD COUNT 1.7 10^3/uL (4.0-10.0)
[2021-02-12 07:14] LABS: NEUTROPHILS # 0.8 10^3/uL (1.5-8.5); PLATELET COUNT, AUTOMATED 33 10^3/uL (150-450)
[2021-02-12 07:34] LABS: BLOOD UREA NITROGEN 10 MG/DL (7-18); C REACTIVE PROTEIN QUANTITATIV 1.99 MG/DL (0.00-0.30); CARBON DIOXIDE LEVEL 30 MEQ/L (21-32); CHLORIDE LEVEL 103 MEQ/L (98-107); CREATININE FOR GFR 0.56 MG/DL (0.70-1.30); GLOMERULAR FILTRATION RATE > 60.0 (>56); GLUCOSE, FASTING 106 MG/DL (70-100); POTASSIUM SERUM 3.7 MEQ/L (3.5-5.1); SODIUM LEVEL 138 MEQ/L (136-145)
[2021-02-12 07:45] LABS: ERYTHROCYTE SEDIMENTATION RATE 36 mm/hr (0-20)
[2021-02-12] MEDS ORDERED: HOME MED LIST COMPLETE! XX SCH (08:40)
[2021-02-12 09:22] LABS: RSV AMPLIFICATION NEGATIVE (NEGATIVE)
[2021-02-12] MEDS ORDERED: VANCOMYCIN HCL 1,750 MG in NS 250 ML IV ONE (09:35)
[2021-02-12] MEDS ORDERED: VANCOMYCIN HCL 1,000 MG, VIAL MATE ADAPTER 1 EACH in NS 250 ML IV ONE (10:00)
[2021-02-12] MEDS ORDERED: VANCOMYCIN HCL 750 MG, VIAL MATE ADAPTER 1 EACH in NS 250 ML IV ONE (10:00)
[2021-02-12] MEDS ORDERED: MAALOX 30 ML SUSP *UDC PO PRN (12:15)
[2021-02-12] MEDS ORDERED: ACETAMINOPHEN TAB 650MG DOSE (2X325MG) PO PRN (12:15)
[2021-02-12] MEDS ORDERED: HEPARIN SOD (PORCINE) 5000UNITS/ML 1ML VIAL/SYRINGE SC SCH (12:15)
[2021-02-12] MEDS ORDERED: MOM 30ML SUSPENSION UDC PO PRN (12:15)
[2021-02-12] MEDS ORDERED: CEFEPIME HCL 1 GM in D5W MINI-BAG PLUS 50 ML IV SCH (14:25)
[2021-02-12] MEDS ORDERED: VANCOMYCIN HCL 1,000 MG, VIAL MATE ADAPTER 1 EACH in NS 250 ML IV SCH (14:25)
[2021-02-12] MEDS ORDERED: CEFEPIME HCL 1 GM in D5W MINI-BAG PLUS 50 ML IV ONE (15:00)
[2021-02-12 15:30] VITALS: BP 135/96
[2021-02-12 17:00] VITALS: BP 135/95
[2021-02-12] MEDS: MULTIVITAMINS/MINERALS THERAP 1 TAB PO SCH (17:06)
[2021-02-12] MEDS: FOLIC ACID 1 MG TAB PO SCH (17:07)
[2021-02-12] MEDS: CEFEPIME HCL 1 GM in D5W MINI-BAG PLUS 50 ML IV SCH (17:19)
[2021-02-12] MEDS ORDERED: ALBUTEROL SULFATE 2.5 MG/0.5 ML INH NEB SOLN NEB PRN (17:40)
[2021-02-12] MEDS: VANCOMYCIN HCL 1,000 MG, VIAL MATE ADAPTER 1 EACH in NS 250 ML IV SCH (18:24)
[2021-02-12 20:47] VITALS: BP 153/97
[2021-02-12] MEDS: THIAMINE 100 MG TAB PO SCH (20:59)
[2021-02-12 21:39] LABS: AMPHETAMINES LEVEL URINE NEGATIVE (NEGATIVE); BARBITURATES URINE NEGATIVE (NEGATIVE); BENZODIAZEPINES URINE NEGATIVE (NEGATIVE); CANNABINOIDS URINE POSITIVE (NEGATIVE); COCAINE METABOLITE URINE NEGATIVE (NEGATIVE); METHADONE URINE NEGATIVE (NEGATIVE); OPIATES URINE NEGATIVE (NEGATIVE); PHENCYCLIDINE URINE NEGATIVE (NEGATIVE)
[2021-02-13] VITALS (8 sets, daily range): BP systolic 133–157; BP diastolic 92–94
[2021-02-13] MEDS: LORazepam 2 MG TAB PO PRN ×3 (00:41→16:43)
[2021-02-13] MEDS: VANCOMYCIN HCL 1,000 MG, VIAL MATE ADAPTER 1 EACH in NS 250 ML IV SCH ×3 (01:47→18:25)
[2021-02-13] MEDS: CEFEPIME HCL 1 GM in D5W MINI-BAG PLUS 50 ML IV SCH ×2 (04:51→20:52)
[2021-02-13] MEDS ORDERED: FLUBLOK(EGG FREE)(QUAD)INFLUENZA VACC 0.5ML SYRINGE 18YRS & OLDER IM ONE (09:00)
[2021-02-13 09:38] LABS: BASO % 0.5 % (0.0-1.0); EOS # 0.2 10^3/uL (0.0-0.5); EOS % 10.5 % (0.0-3.0); HEMOGLOBIN 11.1 g/dl (13.5-17.5); LYMPH # 0.5 10^3/uL (1.5-5.0); LYMPH % 24.7 % (24.0-44.0); MEAN CORPUSCULAR HEMOGLOBIN 31.4 pg (27.0-33.0); MEAN CORPUSCULAR HGB CONC 33.6 g/dl (32.0-36.5); MEAN CORPUSCULAR VOLUME 93.2 fl (80.0-96.0); MONO # 0.3 10^3/uL (0.0-0.8); MONO % 17.4 % (2.0-8.0); NEUTROPHILS % 46.9 % (36.0-66.0); RED BLOOD COUNT 3.54 10^6/uL (4.30-6.10); WHITE BLOOD COUNT 1.9 10^3/uL (4.0-10.0)
[2021-02-13] MEDS: THIAMINE 100 MG TAB PO SCH ×2 (09:55→20:51)
[2021-02-13] MEDS: MULTIVITAMINS/MINERALS THERAP 1 TAB PO SCH (09:55)
[2021-02-13] MEDS: FOLIC ACID 1 MG TAB PO SCH (09:55)
[2021-02-13 10:01] LABS: ALBUMIN 2.5 GM/DL (3.2-5.2); ALT/SGPT 30 U/L (12-78); BLOOD UREA NITROGEN 9 MG/DL (7-18); CALCIUM LEVEL 8.5 MG/DL (8.5-10.1); CARBON DIOXIDE LEVEL 27 MEQ/L (21-32); CHLORIDE LEVEL 106 MEQ/L (98-107); CREATININE FOR GFR 0.51 MG/DL (0.70-1.30); GLOMERULAR FILTRATION RATE > 60.0 (>56); GLUCOSE, FASTING 99 MG/DL (70-100); MAGNESIUM LEVEL 1.7 MG/DL (1.8-2.4); POTASSIUM SERUM 3.8 MEQ/L (3.5-5.1); SODIUM LEVEL 139 MEQ/L (136-145); TOTAL PROTEIN 6.8 GM/DL (6.4-8.2)
[2021-02-13 10:28] LABS: NEUTROPHILS # 0.9 10^3/uL (1.5-8.5); PLATELET COUNT, AUTOMATED 40 10^3/uL (150-450)
[2021-02-13] MEDS ORDERED: BACT800T5 PO (14:36)
[2021-02-13] MEDS: MAG SULF 1GM/100ML (MAG RUN) 1 GM in IV 1 EA IV SCH ×2 (15:00→18:33)
[2021-02-13 15:17] LABS: INR 1.16; PROTHROMBIN TIME 15.2 SECONDS (12.7-14.5)
[2021-02-13] MEDS ORDERED: RAMELTEON 8 MG TAB (ROZEREM) PO PRN (22:00)
[2021-02-14] MEDS ORDERED: BACTRIM 160MG/800MG DS TAB PO SCH
[2021-02-14] MEDS: VANCOMYCIN HCL 1,000 MG, VIAL MATE ADAPTER 1 EACH in NS 250 ML IV SCH ×3 (00:20→12:00)
[2021-02-14] MEDS: CEFEPIME HCL 1 GM in D5W MINI-BAG PLUS 50 ML IV SCH (05:27)
[2021-02-14 05:37] VITALS: BP 145/99
[2021-02-14] MEDS: LORazepam 2 MG TAB PO PRN (05:37)
[2021-02-14 06:21] LABS: BASO % 0.4 % (0.0-1.0); EOS # 0.3 10^3/uL (0.0-0.5); HEMATOCRIT 35.7 % (42.0-52.0); HEMOGLOBIN 12.2 g/dl (13.5-17.5); LYMPH # 0.5 10^3/uL (1.5-5.0); LYMPH % 20.5 % (24.0-44.0); MEAN CORPUSCULAR HGB CONC 34.2 g/dl (32.0-36.5); MEAN CORPUSCULAR VOLUME 90.6 fl (80.0-96.0); MONO # 0.3 10^3/uL (0.0-0.8); MONO % 12.2 % (2.0-8.0); NEUTROPHILS # 1.4 10^3/uL (1.5-8.5); NEUTROPHILS % 55.5 % (36.0-66.0); RED BLOOD COUNT 3.94 10^6/uL (4.30-6.10); WHITE BLOOD COUNT 2.5 10^3/uL (4.0-10.0)
[2021-02-14 06:25] LABS: PLATELET COUNT, AUTOMATED 49 10^3/uL (150-450)
[2021-02-14 06:41] LABS: ALBUMIN 2.6 GM/DL (3.2-5.2); ALT/SGPT 29 U/L (12-78); BILIRUBIN,TOTAL 1.1 MG/DL (0.2-1.0); BLOOD UREA NITROGEN 10 MG/DL (7-18); C REACTIVE PROTEIN QUANTITATIV 0.98 MG/DL (0.00-0.30); CALCIUM LEVEL 8.6 MG/DL (8.5-10.1); CARBON DIOXIDE LEVEL 26 MEQ/L (21-32); CHLORIDE LEVEL 106 MEQ/L (98-107); CREATININE FOR GFR 0.53 MG/DL (0.70-1.30); GLOMERULAR FILTRATION RATE > 60.0 (>56); GLUCOSE, FASTING 118 MG/DL (70-100); MAGNESIUM LEVEL 1.9 MG/DL (1.8-2.4); POTASSIUM SERUM 3.9 MEQ/L (3.5-5.1); SODIUM LEVEL 137 MEQ/L (136-145); TOTAL PROTEIN 7.1 GM/DL (6.4-8.2)
[2021-02-14 07:21] LABS: ERYTHROCYTE SEDIMENTATION RATE 27 mm/hr (0-20)
[2021-02-14] MEDS: MULTIVITAMINS/MINERALS THERAP 1 TAB PO SCH (07:49)
[2021-02-14] MEDS: THIAMINE 100 MG TAB PO SCH (07:49)
[2021-02-14] MEDS: FOLIC ACID 1 MG TAB PO SCH (07:50)
[2021-02-14 10:00] VITALS: BP 140/89
[2021-04-03] MEDS ORDERED: SUBO8MIS (19:19)
[2021-04-03] MEDS ORDERED: KETO0.3S OS (22:37)
[2021-04-03] MEDS ORDERED: ERYTOIN8 OS (22:37)
== END 2021-02-14 14:05 | disposition home or self-care (01) ==
LOC: M ED 03:04 → ENRESERV 13:10 → M ED 15:24 → M MSPAV 15:48
PROVIDERS: ADMIT Family Medicine; ATTEND Family Medicine
DX: L03.115 Cellulitis of right lower limb (principal); R65.11 Systemic inflammatory response syndrome (SIRS) of non-infectious origin with acute organ dysfunction; D61.818 Other pancytopenia; R16.2 Hepatomegaly with splenomegaly, not elsewhere classified; D69.6 Thrombocytopenia, unspecified; F17.218 Nicotine dependence, cigarettes, with other nicotine-induced disorders; B18.2 Chronic viral hepatitis C; F10.10 Alcohol abuse, uncomplicated; F11.10 Opioid abuse, uncomplicated; I27.0 Primary pulmonary hypertension; D72.819 Decreased white blood cell count, unspecified
CPT/HCPCS: 36415; 71045; 76870; 80048; 80053; 80202; 80307; 83605; 83735; 84145; 85025; 85049; 85055; 85610; 85652; 86140; 87040; 87631; 90471; 90682; 93005; 93971; 93976; 96361; 96365; 96366; 96367; 97161; 99285; J0692; J3370; J3475

== ENCOUNTER 2021-07-13 18:38 | Emergency (ER) | payer MEDICAID, OTHER ==
[~2021-07-13] VITALS: Ht 190.5 cm; Wt 95.5 kg
[~2021-07-13 18:38] MED LIST changes: +BACT800T5 PO; +ERYTOIN8 OS; +KETO0.3S OS; +SUBO8MIS
[2021-07-13] MEDS ORDERED: PROMETHAZINE 25MG/ML 1ML VIAL IM ONE (20:30)
[2021-07-13 20:56] LABS: BASO % 0.4 % (0.0-1.0); EOS # 0.1 10^3/uL (0.0-0.5); EOS % 2.2 % (0.0-3.0); HEMATOCRIT 38.7 % (42.0-52.0); HEMOGLOBIN 13.2 g/dl (13.5-17.5); LYMPH # 0.6 10^3/uL (1.5-5.0); MEAN CORPUSCULAR HEMOGLOBIN 29.8 pg (27.0-33.0); MEAN CORPUSCULAR HGB CONC 34.1 g/dl (32.0-36.5); MEAN CORPUSCULAR VOLUME 87.4 fl (80.0-96.0); MONO # 0.6 10^3/uL (0.0-0.8); MONO % 12.7 % (2.0-8.0); NEUTROPHILS # 3.3 10^3/uL (1.5-8.5); NEUTROPHILS % 72.3 % (36.0-66.0); PLATELET COUNT, AUTOMATED 36 10^3/uL (150-450); RED BLOOD COUNT 4.43 10^6/uL (4.30-6.10); WHITE BLOOD COUNT 4.6 10^3/uL (4.0-10.0)
[2021-07-13] MEDS ORDERED: BUPRENORPHINE/NALOXONE 8-2MG SUBLINGUAL TABLET(SUBOXONE) SL ONE (21:00)
[2021-07-13 21:16] LABS: BLOOD UREA NITROGEN 16 MG/DL (7-18); CALCIUM LEVEL 8.9 MG/DL (8.5-10.1); CARBON DIOXIDE LEVEL 25 MEQ/L (21-32); CHLORIDE LEVEL 102 MEQ/L (98-107); CREATININE FOR GFR 0.52 MG/DL (0.70-1.30); GLOMERULAR FILTRATION RATE > 60.0 (>56); GLUCOSE, FASTING 96 MG/DL (70-100); MAGNESIUM LEVEL 2.1 MG/DL (1.8-2.4); POTASSIUM SERUM 3.6 MEQ/L (3.5-5.1); SODIUM LEVEL 134 MEQ/L (136-145)
[2021-07-13] MEDS ORDERED: LEVO750T13 PO (23:05)
[2021-07-13] MEDS ORDERED: LevoFLOXacin 750 MG TABLET PO ONE (23:05)
[2021-07-13 23:35] VITALS: BP 115/78
== END 2021-07-13 23:37 | disposition home or self-care (01) ==
LOC: M ED 18:38
DX: F11.13 Opioid abuse with withdrawal (principal); B97.81 Human metapneumovirus as the cause of diseases classified elsewhere; Z20.9 Contact with and (suspected) exposure to unspecified communicable disease; F17.200 Nicotine dependence, unspecified, uncomplicated; Z79.899 Other long term (current) drug therapy
CPT/HCPCS: 71045; 80048; 83735; 85025; 85049; 85055; 87798; 96372; 99284; J2550

== ENCOUNTER 2021-07-17 12:58 | Inpatient (IN) | payer OTHER ==
[~2021-07-17] VITALS: Ht 190.5 cm; Wt 88.9 kg
[~2021-07-17 12:58] MED LIST changes: +LEVO750T13 PO; +VANCOMYCIN HCL 1,000 MG, VIAL MATE ADAPTER 1 EACH in NS 250 ML IV SCH
[2021-07-17 18:02] LABS: BASO % 0.7 % (0.0-1.0); EOS # 0.3 10^3/uL (0.0-0.5); EOS % 9.9 % (0.0-3.0); HEMOGLOBIN 11.7 g/dl (13.5-17.5); LYMPH # 0.5 10^3/uL (1.5-5.0); LYMPH % 17.5 % (24.0-44.0); MEAN CORPUSCULAR HEMOGLOBIN 29.8 pg (27.0-33.0); MEAN CORPUSCULAR HGB CONC 33.4 g/dl (32.0-36.5); MEAN CORPUSCULAR VOLUME 89.1 fl (80.0-96.0); MONO # 0.5 10^3/uL (0.0-0.8); MONO % 16.2 % (2.0-8.0); NEUTROPHILS # 1.7 10^3/uL (1.5-8.5); NEUTROPHILS % 54.7 % (36.0-66.0); RED BLOOD COUNT 3.93 10^6/uL (4.30-6.10)
[2021-07-17 18:03] LABS: PLATELET COUNT, AUTOMATED 59 10^3/uL (150-450)
[2021-07-17] MEDS ORDERED: NALOXONE INJ 0.4MG/1ML VIAL (J2310 PER 1MG) IV STA (18:06)
[2021-07-17] MEDS ORDERED: LevoFLOXacin IV 750 MG in IV 1 EA IV ONE (18:10)
[2021-07-17 18:23] LABS: BLOOD UREA NITROGEN 15 MG/DL (7-18); CALCIUM LEVEL 8.2 MG/DL (8.5-10.1); CARBON DIOXIDE LEVEL 28 MEQ/L (21-32); CHLORIDE LEVEL 102 MEQ/L (98-107); CREATININE FOR GFR 0.55 MG/DL (0.70-1.30); GLOMERULAR FILTRATION RATE > 60.0 (>56); GLUCOSE, FASTING 101 MG/DL (70-100); POTASSIUM SERUM 3.8 MEQ/L (3.5-5.1); SODIUM LEVEL 135 MEQ/L (136-145)
[2021-07-17] MEDS ORDERED: NS 1,000 ML IV ONE (18:35)
[2021-07-17] MEDS ORDERED: cloNIDine 0.1MG TABLET PO ONE (20:40)
[2021-07-17] MEDS ORDERED: HOME MED LIST COMPLETE! XX SCH (21:05)
[2021-07-17] MEDS ORDERED: MAALOX 30 ML SUSP *UDC PO PRN (21:20)
[2021-07-17] MEDS ORDERED: MOM 30ML SUSPENSION UDC PO PRN (21:20)
[2021-07-17] MEDS ORDERED: ACETAMINOPHEN TAB 650MG DOSE (2X325MG) PO PRN (21:20)
[2021-07-17] MEDS ORDERED: ONDANSETRON 4MG ORAL DISINTEGRATING TAB PO PRN (21:25)
[2021-07-17] MEDS ORDERED: DICYCLOMINE 10 MG CAP PO PRN (21:25)
[2021-07-17] MEDS ORDERED: BENZONATATE 100MG CAPSULE PO PRN (21:30)
[2021-07-17 22:04] LABS: APPEARANCE, URINE CLEAR (CLEAR); BACTERIA, URINE AUTO NEGATIVE (NEGATIVE); BILIRUBIN, URINE AUTO NEGATIVE (NEGATIVE); BLOOD, URINE BLOOD 1+ (NEGATIVE); COLOR, URINE YELLOW (YELLOW); GLUCOSE, URINE (UA) AUTO NEGATIVE (NEGATIVE); KETONE, URINE AUTO NEGATIVE (NEGATIVE); LEUKOCYTE ESTERASE, URINE AUTO NEGATIVE (NEGATIVE); MUCUS, URINE SMALL (NEGATIVE); NITRITE, URINE AUTO NEGATIVE (NEGATIVE); PROTEIN, URINE AUTO NEGATIVE (NEGATIVE); RBC, URINE AUTO 3 /HPF (0-3); SPECIFIC GRAVITY URINE AUTO 1.021 (1.002-1.035); SQUAMOUS EPITHELIAL CELL UR AU 0 /HPF (0-6); WBC, URINE AUTO 0 /HPF (0-3)
[2021-07-17 22:46] LABS: AMPHETAMINES LEVEL URINE POSITIVE (NEGATIVE); BARBITURATES URINE NEGATIVE (NEGATIVE); BENZODIAZEPINES URINE NEGATIVE (NEGATIVE); CANNABINOIDS URINE POSITIVE (NEGATIVE); COCAINE METABOLITE URINE NEGATIVE (NEGATIVE); METHADONE URINE NEGATIVE (NEGATIVE); OPIATES URINE POSITIVE (NEGATIVE); PHENCYCLIDINE URINE NEGATIVE (NEGATIVE)
[2021-07-17] MEDS: CIPRODEX OTIC SUSP 7.5ML AS SCH (23:28)
[2021-07-18] MEDS ORDERED: VANCOMYCIN HCL 1,000 MG, VIAL MATE ADAPTER 1 EACH in NS 250 ML IV ONE ×3
[2021-07-18] MEDS ORDERED: VANCOMYCIN HCL 750 MG, VIAL MATE ADAPTER 1 EACH in NS 250 ML IV ONE (01:00)
[2021-07-18] MEDS: PIPERACILLIN/TAZOBACTAM SOD 3.375 GM in D5W MINI-BAG PLUS 50 ML IV SCH ×3 (04:00→16:00)
[2021-07-18] MEDS ORDERED: PERCOCET 5MG/325MG TAB PO PRN (07:05)
[2021-07-18] MEDS ORDERED: KETOROLAC 30 MG/ML 1ML VIAL IV PRN (07:05)
[2021-07-18] MEDS ORDERED: MORPHINE 4 MG/ML 1ML VIAL/SYRINGE IV PRN (07:05)
[2021-07-18] MEDS ORDERED: MORPHINE 2 MG/ML 1ML VIAL IV ONE (07:05)
[2021-07-18] MEDS ORDERED: cloNIDine 0.2 MG TAB PO ONE (07:10)
[2021-07-18] MEDS ORDERED: KETOROLAC 30 MG/ML 1ML VIAL IV ONE (07:10)
[2021-07-18] MEDS: VANCOMYCIN HCL 1,000 MG, VIAL MATE ADAPTER 1 EACH in NS 250 ML IV SCH ×2 (08:16→14:25)
[2021-07-18] MEDS: hydrOXYzine 25 MG TAB PO PRN ×2 (08:16→15:50)
[2021-07-18 08:47] LABS: HEMATOCRIT 32.7 % (42.0-52.0); HEMOGLOBIN 10.9 g/dl (13.5-17.5); MEAN CORPUSCULAR HEMOGLOBIN 29.9 pg (27.0-33.0); MEAN CORPUSCULAR HGB CONC 33.3 g/dl (32.0-36.5); MEAN CORPUSCULAR VOLUME 89.6 fl (80.0-96.0); RED BLOOD COUNT 3.65 10^6/uL (4.30-6.10)
[2021-07-18 08:48] LABS: PLATELET COUNT, AUTOMATED 49 10^3/uL (150-450)
[2021-07-18] MEDS ORDERED: ENOXAPARIN 40MG/0.4ML SYRINGE (J1650 PER 10MG) SC SCH (09:00)
[2021-07-18] MEDS ORDERED: SODIUM CHLORIDE NASAL 0.65% SPRAY BTL (OCEAN) SCH (09:00)
[2021-07-18] MEDS ORDERED: LevoFLOXacin 750 MG TABLET PO SCH (09:00)
[2021-07-18] MEDS ORDERED: LOSARTAN 25 MG TAB PO SCH (09:00)
[2021-07-18] MEDS ORDERED: FLUTICASONE PROP 0.05% NASAL SPRAY 16 GM (FLONASE) NARES SCH (09:00)
[2021-07-18 09:08] LABS: ALBUMIN 2.5 GM/DL (3.2-5.2); ALT/SGPT 25 U/L (12-78); BILIRUBIN,TOTAL 0.9 MG/DL (0.2-1.0); BLOOD UREA NITROGEN 8 MG/DL (7-18); CALCIUM LEVEL 7.9 MG/DL (8.5-10.1); CARBON DIOXIDE LEVEL 25 MEQ/L (21-32); CHLORIDE LEVEL 104 MEQ/L (98-107); CREATININE FOR GFR 0.53 MG/DL (0.70-1.30); GLOMERULAR FILTRATION RATE > 60.0 (>56); GLUCOSE, FASTING 187 MG/DL (70-100); MAGNESIUM LEVEL 1.6 MG/DL (1.8-2.4); POTASSIUM SERUM 3.6 MEQ/L (3.5-5.1); SODIUM LEVEL 135 MEQ/L (136-145); TOTAL PROTEIN 6.4 GM/DL (6.4-8.2)
[2021-07-18 09:15] VITALS: BP 128/75
[2021-07-18] MEDS: CIPRODEX OTIC SUSP 7.5ML AS SCH (10:05)
[2021-07-18] MEDS ORDERED: MAG SULF 1GM/100ML (MAG RUN) 1 GM in IV 1 EA IV ONE (12:00)
[2021-07-18 17:30] VITALS: BP 137/82
[2021-07-18] MEDS ORDERED: AMOX875T2 PO (18:39)
[2021-07-18] MEDS ORDERED: CIPR7.5D5 AS (18:39)
[2021-07-18] MEDS ORDERED: LEVO750T14 PO (18:42)
== END 2021-07-18 18:30 | disposition left against medical advice (07) | DRG 113 ==
LOC: M ED 12:58 → M ED INP 12:59 → UNDOADMOB 21:20 → M ED INP 21:20 → INTOOBSV 23:23 → OBSVTOIN 23:23 → UNDODISOB 07-18 18:30
PROVIDERS: ADMIT Family Medicine; ATTEND Family Medicine
DX: H70.092 Acute mastoiditis with other complications, left ear (principal); D61.818 Other pancytopenia; J12.3 Human metapneumovirus pneumonia; H72.92 Unspecified perforation of tympanic membrane, left ear; F11.10 Opioid abuse, uncomplicated; T40.1X1A Poisoning by heroin, accidental (unintentional), initial encounter; M79.89 Other specified soft tissue disorders; R22.41 Localized swelling, mass and lump, right lower limb; Z79.899 Other long term (current) drug therapy; Z53.29 Procedure and treatment not carried out because of patient's decision for other reasons; Z91.19 Patient's noncompliance with other medical treatment and regimen

== ENCOUNTER 2022-01-15 21:20 | Emergency (ER) | payer OTHER ==
[~2022-01-15] VITALS: Ht 191.8 cm; Wt 81.5 kg
[~2022-01-15 21:20] MED LIST changes: +AMOX875T2 PO; +CIPR7.5D5 AS; +LEVO1TAB40 PO; -LEVO750T13 PO; +LEVO750T14 PO; -VANCOMYCIN HCL 1,000 MG, VIAL MATE ADAPTER 1 EACH in NS 250 ML IV SCH
[2022-01-15 22:07] LABS: BASO % 0.5 % (0.0-1.0); EOS # 0.3 10^3/uL (0.0-0.5); HEMATOCRIT 36.1 % (42.0-52.0); HEMOGLOBIN 12.1 g/dl (13.5-17.5); LYMPH # 0.7 10^3/uL (1.5-5.0); LYMPH % 12.3 % (24.0-44.0); MEAN CORPUSCULAR HEMOGLOBIN 29.8 pg (27.0-33.0); MEAN CORPUSCULAR HGB CONC 33.5 g/dl (32.0-36.5); MEAN CORPUSCULAR VOLUME 88.9 fl (80.0-96.0); MONO # 0.7 10^3/uL (0.0-0.8); MONO % 11.7 % (2.0-8.0); NEUTROPHILS # 3.9 10^3/uL (1.5-8.5); NEUTROPHILS % 69.4 % (36.0-66.0); RED BLOOD COUNT 4.06 10^6/uL (4.30-6.10); WHITE BLOOD COUNT 5.6 10^3/uL (4.0-10.0)
[2022-01-15 22:16] LABS: INR 1.27; PROTHROMBIN TIME 16.2 SECONDS (12.5-14.5)
[2022-01-15 22:17] LABS: PARTIAL THROMBOPLASTIN TIME 36.4 SECONDS (24.8-34.2)
[2022-01-15 22:31] LABS: PLATELET COUNT, AUTOMATED 59 10^3/uL (150-450)
[2022-01-15 22:34] LABS: ALBUMIN 3.2 GM/DL (3.2-5.2); ALT/SGPT 29 U/L (12-78); BILIRUBIN,DIRECT 0.9 MG/DL (0.0-0.2); BILIRUBIN,TOTAL 1.6 MG/DL (0.2-1.0); BLOOD UREA NITROGEN 10 MG/DL (7-18); CALCIUM LEVEL 8.3 MG/DL (8.5-10.1); CARBON DIOXIDE LEVEL 27 MEQ/L (21-32); CHLORIDE LEVEL 99 MEQ/L (98-107); CREATININE FOR GFR 0.56 MG/DL (0.70-1.30); GLOMERULAR FILTRATION RATE > 60.0 (>56); GLUCOSE, FASTING 123 MG/DL (70-100); LIPASE 94 U/L (73-393); POTASSIUM SERUM 3.5 MEQ/L (3.5-5.1); SODIUM LEVEL 132 MEQ/L (136-145)
[2022-01-16] MEDS ORDERED: ACETAMINOPHEN TAB 650MG DOSE (2X325MG) PO ONE (04:30)
[2022-01-16 04:46] LABS: NT-PRO BNP 317 PG/ML (<125)
[2022-01-16] MEDS ORDERED: PRED20TA PO (05:39)
[2022-01-16] MEDS ORDERED: AZIT500T5 PO (05:39)
[2022-01-16] MEDS ORDERED: CEFD300C PO (05:41)
[2022-01-16] MEDS ORDERED: CEFDINIR 300 MG CAP (OMNICEF) PO ONE (05:50)
[2022-01-16 06:15] VITALS: BP 125/77
== END 2022-01-16 06:50 | disposition home or self-care (01) ==
LOC: M ED 21:20
DX: J18.9 Pneumonia, unspecified organism (principal); R50.9 Fever, unspecified; J44.9 Chronic obstructive pulmonary disease, unspecified; F17.200 Nicotine dependence, unspecified, uncomplicated; Z79.899 Other long term (current) drug therapy

== ENCOUNTER 2022-02-20 01:08 | Emergency (ER) | payer OTHER ==
[~2022-02-20] VITALS: Ht 190.5 cm; Wt 85.5 kg
[2022-02-20 01:08] VITALS: BP 128/68
[~2022-02-20 01:08] MED LIST changes: +AZIT500T5 PO; +CEFD300C PO; +PRED20TA PO
[2022-02-20] MEDS ORDERED: BOOSTRIX/ADACEL VACCINE (DIPHTH/PERTUSS/ACELL/TETANUS) 0.5ML SYR IM.IMMUN ONE (03:00)
[2022-02-20] MEDS ORDERED: CEPH500T PO (03:04)
== END 2022-02-20 03:25 | disposition home or self-care (01) ==
LOC: M ED 01:08
DX: S81.811A Laceration without foreign body, right lower leg, initial encounter (principal); W22.8XXA Striking against or struck by other objects, initial encounter; Y92.099 Unspecified place in other non-institutional residence as the place of occurrence of the external cause; Z86.19 Personal history of other infectious and parasitic diseases; F19.10 Other psychoactive substance abuse, uncomplicated; Z79.899 Other long term (current) drug therapy

== ENCOUNTER 2022-03-01 09:17 | Inpatient (IN) | payer OTHER ==
[~2022-03-01] VITALS: Ht 190.5 cm; Wt 79.0 kg
[~2022-03-01 09:17] MED LIST changes: +CEPH500T PO
[2022-03-01] MEDS ORDERED: CEFTAROLINE FOSAMIL 600 MG in D5W MINI-BAG PLUS 50 ML IV ONE (10:05)
[2022-03-01 10:41] LABS: BASO % 0.2 % (0.0-1.0); EOS # 0.1 10^3/uL (0.0-0.5); HEMATOCRIT 33.5 % (42.0-52.0); HEMOGLOBIN 10.7 g/dl (13.5-17.5); LYMPH # 0.5 10^3/uL (1.5-5.0); LYMPH % 12.3 % (24.0-44.0); MEAN CORPUSCULAR HEMOGLOBIN 28.9 pg (27.0-33.0); MEAN CORPUSCULAR HGB CONC 31.9 g/dl (32.0-36.5); MEAN CORPUSCULAR VOLUME 90.5 fl (80.0-96.0); MONO # 0.4 10^3/uL (0.0-0.8); MONO % 10.3 % (2.0-8.0); NEUTROPHILS % 73.5 % (36.0-66.0); WHITE BLOOD COUNT 4.1 10^3/uL (4.0-10.0)
[2022-03-01 10:49] LABS: BILIRUBIN,DIRECT 0.7 MG/DL (<0.4); INR 1.36
[2022-03-01 10:50] LABS: PARTIAL THROMBOPLASTIN TIME 34.8 SECONDS (24.8-34.2)
[2022-03-01 10:53] LABS: RSV AMPLIFICATION NEGATIVE (NEGATIVE)
[2022-03-01 10:57] LABS: PLATELET COUNT, AUTOMATED 48 10^3/uL (150-450)
[2022-03-01 11:19] LABS: ALBUMIN 2.4 G/DL (3.2-5.2); ALKALINE PHOSPHATASE 68 U/L (46-116); ALT/SGPT 23 U/L (7.0-40); AST/SGOT 54 U/L (<34); BILIRUBIN,TOTAL 1.5 MG/DL (0.3-1.2); BLOOD UREA NITROGEN 10 MG/DL (9-23); CALCIUM LEVEL 7.3 MG/DL (8.5-10.1); CARBON DIOXIDE LEVEL 25 MMOL/L (20-31); CHLORIDE LEVEL 96 MMOL/L (98-107); CREATININE FOR GFR 0.46 MG/DL (0.70-1.30); GLOMERULAR FILTRATION RATE > 60.0 (>56); GLUCOSE, FASTING 109 MG/DL (60-100); POTASSIUM SERUM 4.4 MMOL/L (3.5-5.1); SODIUM LEVEL 126 MMOL/L (136-145); TOTAL PROTEIN 7.2 G/DL (5.7-8.2)
[2022-03-01 11:35] LABS: ERYTHROCYTE SEDIMENTATION RATE 68 mm/hr (0-20)
[2022-03-01] MEDS ORDERED: KETOROLAC 30 MG/ML 1ML VIAL IV ONE (11:35)
[2022-03-01] MEDS ORDERED: VITA200032 PO (12:59)
[2022-03-01] MEDS ORDERED: B-1100TA2 PO (12:59)
[2022-03-01] MEDS ORDERED: LISI5TAB11 PO (12:59)
[2022-03-01] MEDS ORDERED: METH10CO PO (12:59)
[2022-03-01] MEDS ORDERED: GABA800T4 PO (12:59)
[2022-03-01] MEDS ORDERED: HOME MED LIST COMPLETE! XX SCH ×2 (13:00→15:25)
[2022-03-01 14:28] LABS: OSMOLALITY SERUM 270 MOSM/KG (275-295)
[2022-03-01 16:56] VITALS: BP 117/79
[2022-03-01] MEDS: GABAPENTIN 400MG CAP PO SCH ×2 (17:24→20:45)
[2022-03-01] MEDS ORDERED: RIVAROXABAN 10MG TAB (XARELTO) PO SCH (18:00)
[2022-03-01] MEDS: cefTRIAXone SOD 1 GM in D5W MINI-BAG PLUS 50 ML IV SCH (20:45)
[2022-03-01 22:00] VITALS: BP 116/80
[2022-03-02 02:00] VITALS: BP 124/72
[2022-03-02] MEDS: KETOROLAC 30 MG/ML 1ML VIAL IV PRN ×2 (02:36→15:05)
[2022-03-02 06:00] VITALS: BP 118/75
[2022-03-02 06:13] LABS: HEMOGLOBIN 10.5 g/dl (13.5-17.5); MEAN CORPUSCULAR HEMOGLOBIN 28.9 pg (27.0-33.0); MEAN CORPUSCULAR HGB CONC 32.8 g/dl (32.0-36.5); MEAN CORPUSCULAR VOLUME 88.2 fl (80.0-96.0); RED BLOOD COUNT 3.63 10^6/uL (4.30-6.10); WHITE BLOOD COUNT 3.3 10^3/uL (4.0-10.0)
[2022-03-02 06:16] LABS: PLATELET COUNT, AUTOMATED 44 10^3/uL (150-450)
[2022-03-02 06:27] LABS: INR 1.31; PROTHROMBIN TIME 16.5 SECONDS (12.5-14.5)
[2022-03-02 06:40] LABS: BLOOD UREA NITROGEN 14 MG/DL (9-23); CALCIUM LEVEL 7.2 MG/DL (8.5-10.1); CARBON DIOXIDE LEVEL 24 MMOL/L (20-31); CHLORIDE LEVEL 102 MMOL/L (98-107); CREATININE FOR GFR 0.49 MG/DL (0.70-1.30); GLOMERULAR FILTRATION RATE > 60.0 (>56); GLUCOSE, FASTING 105 MG/DL (60-100); POTASSIUM SERUM 3.8 MMOL/L (3.5-5.1); SODIUM LEVEL 131 MMOL/L (136-145)
[2022-03-02 06:43] LABS: FOLATE 10.57 NG/ML (>5.4)
[2022-03-02 06:45] LABS: VITAMIN B12 LEVEL 600 PG/ML (211-911)
[2022-03-02] MEDS: GABAPENTIN 400MG CAP PO SCH ×3 (08:03→20:16)
[2022-03-02] MEDS: THIAMINE 100 MG TAB PO SCH (08:03)
[2022-03-02] MEDS: METHADONE 10MG TAB PO SCH (08:03)
[2022-03-02] MEDS ORDERED: LIDOCAINE 1% MDV 20ML VIAL IM ONE (09:55)
[2022-03-02 14:00] VITALS: BP 117/70
[2022-03-02] MEDS: cefTRIAXone SOD 1 GM in D5W MINI-BAG PLUS 50 ML IV SCH (20:16)
[2022-03-02 22:00] VITALS: BP 115/70
[2022-03-03] MEDS: KETOROLAC 30 MG/ML 1ML VIAL IV PRN (03:01)
[2022-03-03 06:00] VITALS: BP 121/77
[2022-03-03 06:26] LABS: HEMATOCRIT 30.9 % (42.0-52.0); HEMOGLOBIN 10.1 g/dl (13.5-17.5); MEAN CORPUSCULAR HEMOGLOBIN 29.1 pg (27.0-33.0); MEAN CORPUSCULAR HGB CONC 32.7 g/dl (32.0-36.5); RED BLOOD COUNT 3.47 10^6/uL (4.30-6.10); WHITE BLOOD COUNT 2.9 10^3/uL (4.0-10.0)
[2022-03-03 06:39] LABS: INR 1.24; PROTHROMBIN TIME 15.9 SECONDS (12.5-14.5)
[2022-03-03 06:42] LABS: PLATELET COUNT, AUTOMATED 49 10^3/uL (150-450)
[2022-03-03 06:45] LABS: BLOOD UREA NITROGEN 14 MG/DL (9-23); CALCIUM LEVEL 7.4 MG/DL (8.5-10.1); CARBON DIOXIDE LEVEL 25 MMOL/L (20-31); CHLORIDE LEVEL 103 MMOL/L (98-107); CREATININE FOR GFR 0.43 MG/DL (0.70-1.30); GLOMERULAR FILTRATION RATE > 60.0 (>56); GLUCOSE, FASTING 109 MG/DL (60-100); POTASSIUM SERUM 4.1 MMOL/L (3.5-5.1); SODIUM LEVEL 133 MMOL/L (136-145)
[2022-03-03 07:10] LABS: ERYTHROCYTE SEDIMENTATION RATE 65 mm/hr (0-20)
[2022-03-03] MEDS: GABAPENTIN 400MG CAP PO SCH (08:54)
[2022-03-03] MEDS: METHADONE 10MG TAB PO SCH (08:55)
[2022-03-03] MEDS: THIAMINE 100 MG TAB PO SCH (08:55)
[2022-03-03] MEDS ORDERED: DOXY100C3 PO (10:26)
[2022-03-03] MEDS ORDERED: IBUP-1022 PO (10:26)
== END 2022-03-03 13:50 | disposition home or self-care (01) | DRG 850 ==
LOC: M ED 09:17 → EDBD 09:17 → M ED INP 13:21 → ENRESERV 15:58 → M MS5PR 16:53
PROVIDERS: ADMIT Student in an Organized Health Care Education/Training Program; ATTEND Student in an Organized Health Care Education/Training Program
PROC: 0JDN0ZZ Extraction of Right Lower Leg Subcutaneous Tissue and Fascia, Open Approach (ICD-10-PCS; principal; 2022-03-02)
DX: S81.811D Laceration without foreign body, right lower leg, subsequent encounter (principal); D68.9 Coagulation defect, unspecified; K76.6 Portal hypertension; D69.6 Thrombocytopenia, unspecified; E87.1 Hypo-osmolality and hyponatremia; G62.9 Polyneuropathy, unspecified; L03.115 Cellulitis of right lower limb; R16.1 Splenomegaly, not elsewhere classified; K74.60 Unspecified cirrhosis of liver; B19.20 Unspecified viral hepatitis C without hepatic coma; D64.9 Anemia, unspecified; I86.8 Varicose veins of other specified sites; I10 Essential (primary) hypertension; R59.1 Generalized enlarged lymph nodes; F17.200 Nicotine dependence, unspecified, uncomplicated; Z79.899 Other long term (current) drug therapy; Z20.822 Contact with and (suspected) exposure to COVID-19; F11.988 Opioid use, unspecified with other opioid-induced disorder

== ENCOUNTER 2022-06-26 12:06 | Emergency (ER) | payer OTHER ==
[~2022-06-26] VITALS: Ht 190.5 cm; Wt 89.3 kg
[~2022-06-26 12:06] MED LIST changes: +B-1100TA2 PO; +DOXY100C3 PO; +GABA800T4 PO; +IBUP-1022 PO; +LISI5TAB11 PO; +METH10CO PO; +VITA200032 PO
[2022-06-26 13:06] LABS: BASO % 0.4 % (0.0-1.0); EOS # 0.2 10^3/uL (0.0-0.5); EOS % 8.8 % (0.0-3.0); HEMATOCRIT 34.1 % (42.0-52.0); HEMOGLOBIN 10.6 g/dl (13.5-17.5); LYMPH # 0.5 10^3/uL (1.5-5.0); LYMPH % 20.8 % (24.0-44.0); MEAN CORPUSCULAR HEMOGLOBIN 28.6 pg (27.0-33.0); MEAN CORPUSCULAR HGB CONC 31.1 g/dl (32.0-36.5); MEAN CORPUSCULAR VOLUME 91.9 fl (80.0-96.0); MONO # 0.3 10^3/uL (0.0-0.8); MONO % 10.8 % (2.0-8.0); NEUTROPHILS # 1.5 10^3/uL (1.5-8.5); NEUTROPHILS % 59.2 % (36.0-66.0); RED BLOOD COUNT 3.71 10^6/uL (4.30-6.10); WHITE BLOOD COUNT 2.5 10^3/uL (4.0-10.0)
[2022-06-26 13:14] LABS: PLATELET COUNT, AUTOMATED 52 10^3/uL (150-450)
[2022-06-26 13:17] LABS: ERYTHROCYTE SEDIMENTATION RATE 45 mm/hr (0-20)
[2022-06-26] MEDS ORDERED: VANCOMYCIN HCL 1,500 MG in D5W 250 ML IV SCH (13:25)
[2022-06-26] MEDS ORDERED: PIPERACILLIN/TAZOBACTAM SOD 4.5 GM in D5W MINI-BAG PLUS 50 ML IV ONE (13:25)
[2022-06-26] MEDS ORDERED: VANCOMYCIN HCL 1,000 MG, VIAL MATE ADAPTER 1 EACH in D5W 250 ML IV ONE (14:00)
[2022-06-26 14:50] LABS: CK-MB VALUE MASS 3.6 NG/ML (<3.6)
[2022-06-26 14:51] LABS: ETHYL ALCOHOL (ETHANOL) < 0.003 % (0.000-0.010)
[2022-06-26 14:52] LABS: CPK CREATINE PHOSPHOKINASE 166 U/L (46-171); MB/CK RELATIVE INDEX 2.16 (< OR =4)
[2022-06-26 14:53] LABS: ALBUMIN 2.8 G/DL (3.2-5.2); ALKALINE PHOSPHATASE 60 U/L (46-116); ALT/SGPT 21 U/L (7.0-40); AST/SGOT 38 U/L (<34); BILIRUBIN,DIRECT 0.6 MG/DL (<0.4); BILIRUBIN,TOTAL 0.9 MG/DL (0.3-1.2); BLOOD UREA NITROGEN 11 MG/DL (9-23); CALCIUM LEVEL 7.6 MG/DL (8.5-10.1); CARBON DIOXIDE LEVEL 27 MMOL/L (20-31); CHLORIDE LEVEL 104 MMOL/L (98-107); CREATININE FOR GFR 0.56 MG/DL (0.70-1.30); GLOMERULAR FILTRATION RATE > 60.0 (>56); GLUCOSE, FASTING 114 MG/DL (60-100); POTASSIUM SERUM 3.6 MMOL/L (3.5-5.1); SODIUM LEVEL 136 MMOL/L (136-145); TOTAL PROTEIN 6.7 G/DL (5.7-8.2)
[2022-06-26 14:57] LABS: RSV AMPLIFICATION NEGATIVE (NEGATIVE)
[2022-06-26] MEDS ORDERED: VANCOMYCIN HCL 750 MG, VIAL MATE ADAPTER 1 EACH in D5W 250 ML IV ONE (15:00)
[2022-06-26 16:06] VITALS: BP 115/79
== END 2022-06-26 16:30 | disposition left against medical advice (07) ==
LOC: M ED 12:06
DX: L03.119 Cellulitis of unspecified part of limb (principal); F19.10 Other psychoactive substance abuse, uncomplicated; Z53.9 Procedure and treatment not carried out, unspecified reason; J44.9 Chronic obstructive pulmonary disease, unspecified; F10.10 Alcohol abuse, uncomplicated; Z86.19 Personal history of other infectious and parasitic diseases; Z79.899 Other long term (current) drug therapy
CPT/HCPCS: 80047; 80048; 80076; 82077; 82550; 82553; 85025; 85049; 85055; 85652; 86140; 87040; 87631; 93005; 96374; 96375; 99284; J2543

== ENCOUNTER 2022-07-03 09:32 | Inpatient (IN) | payer OTHER ==
[~2022-07-03] VITALS: Ht 190.5 cm; Wt 87.8 kg
[2022-07-03] MEDS ORDERED: KETOROLAC 30 MG/ML 1ML VIAL IV ONE (12:50)
[2022-07-03] MEDS ORDERED: NS 1,000 ML IV SCH (12:50)
[2022-07-03] MEDS ORDERED: VANCOMYCIN HCL 1,750 MG in IV FLUID PLACE HOLDER 1 EA IV ONE (12:50)
[2022-07-03] MEDS ORDERED: VANCOMYCIN HCL 1,000 MG, VIAL MATE ADAPTER 1 EACH in D5W 250 ML IV ONE (13:00)
[2022-07-03 13:33] LABS: BASO % 0.2 % (0.0-1.0); EOS # 0.2 10^3/uL (0.0-0.5); EOS % 3.3 % (0.0-3.0); HEMATOCRIT 36.7 % (42.0-52.0); HEMOGLOBIN 12.1 g/dl (13.5-17.5); LYMPH # 0.6 10^3/uL (1.5-5.0); LYMPH % 13.4 % (24.0-44.0); MEAN CORPUSCULAR HEMOGLOBIN 28.9 pg (27.0-33.0); MEAN CORPUSCULAR VOLUME 87.8 fl (80.0-96.0); MONO # 0.4 10^3/uL (0.0-0.8); MONO % 8.5 % (2.0-8.0); NEUTROPHILS # 3.3 10^3/uL (1.5-8.5); NEUTROPHILS % 74.2 % (36.0-66.0); RED BLOOD COUNT 4.18 10^6/uL (4.30-6.10); WHITE BLOOD COUNT 4.5 10^3/uL (4.0-10.0)
[2022-07-03 13:35] LABS: PLATELET COUNT, AUTOMATED 45 10^3/uL (150-450)
[2022-07-03 13:55] LABS: CK-MB VALUE MASS 1.9 NG/ML (<3.6)
[2022-07-03 13:56] LABS: ALBUMIN 2.5 G/DL (3.2-5.2); ALKALINE PHOSPHATASE 64 U/L (46-116); ALT/SGPT 18 U/L (7.0-40); AMYLASE 33 U/L (30-118); AST/SGOT 46 U/L (<34); BILIRUBIN,DIRECT 0.8 MG/DL (<0.4); BILIRUBIN,TOTAL 1.3 MG/DL (0.3-1.2); BLOOD UREA NITROGEN 23 MG/DL (9-23); CALCIUM LEVEL 7.8 MG/DL (8.5-10.1); CARBON DIOXIDE LEVEL 27 MMOL/L (20-31); CHLORIDE LEVEL 98 MMOL/L (98-107); CPK CREATINE PHOSPHOKINASE 120 U/L (46-171); CREATININE FOR GFR 0.57 MG/DL (0.70-1.30); GLOMERULAR FILTRATION RATE > 60.0 (>56); GLUCOSE, FASTING 124 MG/DL (60-100); MB/CK RELATIVE INDEX 1.58 (< OR =4); POTASSIUM SERUM 3.7 MMOL/L (3.5-5.1); SODIUM LEVEL 131 MMOL/L (136-145); TOTAL PROTEIN 7.2 G/DL (5.7-8.2)
[2022-07-03] MEDS ORDERED: VANCOMYCIN HCL 750 MG, VIAL MATE ADAPTER 1 EACH in D5W 250 ML IV ONE (14:00)
[2022-07-03] MEDS ORDERED: NS 1,640 ML IV ONE (14:05)
[2022-07-03 14:09] LABS: RSV AMPLIFICATION NEGATIVE (NEGATIVE)
[2022-07-03] MEDS ORDERED: NS 2,350 ML in IV 1 EA IV ONE (15:15)
[2022-07-03] MEDS ORDERED: VANCOMYCIN HCL 1 MG in IV FLUID PLACE HOLDER 1 EA IV SCH (16:25)
[2022-07-03] MEDS ORDERED: ISOVUE-370 76% 100ML VIAL As Ordered ONE (16:30)
[2022-07-03 18:09] LABS: BLOOD UREA NITROGEN 22 MG/DL (9-23); CARBON DIOXIDE LEVEL 27 MMOL/L (20-31); CHLORIDE LEVEL 99 MMOL/L (98-107); CREATININE FOR GFR 0.51 MG/DL (0.70-1.30); GLOMERULAR FILTRATION RATE > 60.0 (>56); GLUCOSE, FASTING 99 MG/DL (60-100); POTASSIUM SERUM 3.1 MMOL/L (3.5-5.1); SODIUM LEVEL 131 MMOL/L (136-145)
[2022-07-03] MEDS ORDERED: POTASSIUM CHLORIDE 10MEQ SR TABLET PO ONE ×3 (18:15→19:30)
[2022-07-03 18:42] LABS: OSMOLALITY SERUM 274 MOSM/KG (275-295)
[2022-07-03 18:45] LABS: MAGNESIUM LEVEL 1.5 MG/DL (1.8-2.4)
[2022-07-03] MEDS ORDERED: MAG SULF 1GM/100ML (MAG RUN) 1 GM in IV 1 EA IV SCH (19:15)
[2022-07-03] MEDS: KCL 10MEQ/100ML SWI (KRUN) 10 MEQ in IV 1 EA IV SCH ×3 (19:21→23:13)
[2022-07-03 20:30] VITALS: BP 117/84
[2022-07-03 21:00] VITALS: O2SAT 96
[2022-07-03 23:00] VITALS: O2SAT 97
[2022-07-03] MEDS: VANCOMYCIN HCL 1,000 MG, VIAL MATE ADAPTER 1 EACH in D5W 250 ML IV SCH (23:13)
[2022-07-04] VITALS (26 sets, daily range): BP systolic 107–128; BP diastolic 69–77; O2SAT 90–100
[2022-07-04] MEDS: MAG SULF 1GM/100ML (MAG RUN) 1 GM in IV 1 EA IV SCH ×4 (00:24→01:39)
[2022-07-04] MEDS ORDERED: METHADONE 10MG TAB PO ONE (01:15)
[2022-07-04 03:49] LABS: OSMOLALITY URINE 705 MOSM/KG (50-1400)
[2022-07-04 03:51] LABS: APPEARANCE, URINE CLEAR (CLEAR); BACTERIA, URINE AUTO NEGATIVE (NEGATIVE); BILIRUBIN, URINE AUTO NEGATIVE (NEGATIVE); BLOOD, URINE BLOOD 2+ (NEGATIVE); COLOR, URINE AMBER (YELLOW); GLUCOSE, URINE (UA) AUTO NEGATIVE (NEGATIVE); KETONE, URINE AUTO NEGATIVE (NEGATIVE); LEUKOCYTE ESTERASE, URINE AUTO NEGATIVE (NEGATIVE); MUCUS, URINE SMALL (NEGATIVE); NITRITE, URINE AUTO NEGATIVE (NEGATIVE); PROTEIN, URINE AUTO NEGATIVE (NEGATIVE); RBC, URINE AUTO 11 /HPF (0-3); SPECIFIC GRAVITY URINE AUTO 1.032 (1.002-1.035); SQUAMOUS EPITHELIAL CELL UR AU 0 /HPF (0-6); WBC, URINE AUTO 2 /HPF (0-3)
[2022-07-04 04:04] LABS: SODIUM,RANDOM URINE 33 MMOL/L
[2022-07-04 04:15] LABS: CREATININE,RANDOM URINE 86.3 MG/DL
[2022-07-04] MEDS: VANCOMYCIN HCL 1,000 MG, VIAL MATE ADAPTER 1 EACH in D5W 250 ML IV SCH ×4 (04:21→21:10)
[2022-07-04 07:37] LABS: BASO % 0.8 % (0.0-1.0); EOS # 0.2 10^3/uL (0.0-0.5); HEMATOCRIT 31.9 % (42.0-52.0); HEMOGLOBIN 10.5 g/dl (13.5-17.5); LYMPH # 0.5 10^3/uL (1.5-5.0); LYMPH % 20.3 % (24.0-44.0); MEAN CORPUSCULAR HEMOGLOBIN 28.2 pg (27.0-33.0); MEAN CORPUSCULAR HGB CONC 32.9 g/dl (32.0-36.5); MEAN CORPUSCULAR VOLUME 85.8 fl (80.0-96.0); MONO # 0.3 10^3/uL (0.0-0.8); NEUTROPHILS # 1.4 10^3/uL (1.5-8.5); NEUTROPHILS % 59.5 % (36.0-66.0); RED BLOOD COUNT 3.72 10^6/uL (4.30-6.10); WHITE BLOOD COUNT 2.4 10^3/uL (4.0-10.0)
[2022-07-04 07:39] LABS: PLATELET COUNT, AUTOMATED 37 10^3/uL (150-450)
[2022-07-04 08:12] LABS: ALBUMIN 1.8 G/DL (3.2-5.2); ALKALINE PHOSPHATASE 47 U/L (46-116); ALT/SGPT 20 U/L (7.0-40); AST/SGOT 48 U/L (<34); BILIRUBIN,TOTAL 1.1 MG/DL (0.3-1.2); BLOOD UREA NITROGEN 13 MG/DL (9-23); CALCIUM LEVEL 6.6 MG/DL (8.5-10.1); CARBON DIOXIDE LEVEL 24 MMOL/L (20-31); CHLORIDE LEVEL 104 MMOL/L (98-107); GLOMERULAR FILTRATION RATE > 60.0 (>56); GLUCOSE, FASTING 89 MG/DL (60-100); MAGNESIUM LEVEL 1.7 MG/DL (1.8-2.4); POTASSIUM SERUM 3.9 MMOL/L (3.5-5.1); SODIUM LEVEL 131 MMOL/L (136-145); TOTAL PROTEIN 5.7 G/DL (5.7-8.2)
[2022-07-04] MEDS ORDERED: ENOXAPARIN 40MG/0.4ML SYRINGE (J1650 PER 10MG) SC SCH (09:00)
[2022-07-04] MEDS ORDERED: HOME MED LIST COMPLETE! XX SCH (09:30)
[2022-07-04] MEDS: FUROSEMIDE 20 MG TAB PO SCH (12:51)
[2022-07-04] MEDS: MAGNESIUM OXIDE 400MG TAB (MAG-OX) PO SCH ×2 (12:51→21:10)
[2022-07-04] MEDS: LACTULOSE 20GM/30ML SYRUP UDC PO SCH ×2 (12:52→21:10)
[2022-07-04] MEDS: cloNIDine 0.1MG TABLET PO PRN (21:55)
[2022-07-05] VITALS (21 sets, daily range): BP systolic 123–161; BP diastolic 55–95; O2SAT 95–100
[2022-07-05] MEDS: VANCOMYCIN HCL 1,000 MG, VIAL MATE ADAPTER 1 EACH in D5W 250 ML IV SCH ×4 (02:47→20:27)
[2022-07-05 07:25] LABS: EOS # 0.2 10^3/uL (0.0-0.5); EOS % 10.7 % (0.0-3.0); HEMATOCRIT 33.3 % (42.0-52.0); HEMOGLOBIN 10.8 g/dl (13.5-17.5); LYMPH # 0.5 10^3/uL (1.5-5.0); LYMPH % 25.5 % (24.0-44.0); MEAN CORPUSCULAR HEMOGLOBIN 28.6 pg (27.0-33.0); MEAN CORPUSCULAR HGB CONC 32.4 g/dl (32.0-36.5); MEAN CORPUSCULAR VOLUME 88.1 fl (80.0-96.0); MONO # 0.2 10^3/uL (0.0-0.8); MONO % 11.7 % (2.0-8.0); NEUTROPHILS % 50.6 % (36.0-66.0); RED BLOOD COUNT 3.78 10^6/uL (4.30-6.10)
[2022-07-05 07:49] LABS: VANCOMYCIN LEVEL TROUGH 12.5 UG/ML (10.0-20.0)
[2022-07-05 07:50] LABS: ALBUMIN 1.9 G/DL (3.2-5.2); ALKALINE PHOSPHATASE 57 U/L (46-116); ALT/SGPT 28 U/L (7.0-40); AST/SGOT 57 U/L (<34); BLOOD UREA NITROGEN 9 MG/DL (9-23); CALCIUM LEVEL 6.7 MG/DL (8.5-10.1); CARBON DIOXIDE LEVEL 25 MMOL/L (20-31); CHLORIDE LEVEL 107 MMOL/L (98-107); CREATININE FOR GFR 0.41 MG/DL (0.70-1.30); GLOMERULAR FILTRATION RATE > 60.0 (>56); GLUCOSE, FASTING 108 MG/DL (60-100); MAGNESIUM LEVEL 1.5 MG/DL (1.8-2.4); POTASSIUM SERUM 3.5 MMOL/L (3.5-5.1); SODIUM LEVEL 138 MMOL/L (136-145); TOTAL PROTEIN 5.8 G/DL (5.7-8.2)
[2022-07-05 08:13] LABS: PLATELET COUNT, AUTOMATED 37 10^3/uL (150-450)
[2022-07-05] MEDS: cloNIDine 0.1MG TABLET PO PRN (08:41)
[2022-07-05] MEDS: FUROSEMIDE 20 MG TAB PO SCH (08:42)
[2022-07-05] MEDS: MAGNESIUM OXIDE 400MG TAB (MAG-OX) PO SCH ×2 (08:42→20:27)
[2022-07-05] MEDS: LACTULOSE 20GM/30ML SYRUP UDC PO SCH ×2 (08:42→20:27)
[2022-07-05] MEDS: MAG SULF 1GM/100ML (MAG RUN) 1 GM in IV 1 EA IV SCH ×3 (11:18→14:19)
[2022-07-05] MEDS: POTASSIUM CHLORIDE 10MEQ SR TABLET PO SCH (16:00)
[2022-07-05] MEDS ORDERED: cloNIDine 0.1MG TABLET PO PRN (20:00)
[2022-07-05] MEDS ORDERED: SPIRONOLACTONE 12.5MG PER 1/2 TABLET PO SCH (21:00)
[2022-07-06] VITALS (7 sets, daily range): BP systolic 133–146; BP diastolic 89–94; O2SAT 97–100
[2022-07-06] MEDS: VANCOMYCIN HCL 1,000 MG, VIAL MATE ADAPTER 1 EACH in D5W 250 ML IV SCH ×2 (03:01→08:15)
[2022-07-06 06:15] LABS: BASO % 0.3 % (0.0-1.0); EOS # 0.3 10^3/uL (0.0-0.5); EOS % 10.9 % (0.0-3.0); HEMATOCRIT 35.4 % (42.0-52.0); HEMOGLOBIN 11.4 g/dl (13.5-17.5); LYMPH # 0.7 10^3/uL (1.5-5.0); LYMPH % 23.1 % (24.0-44.0); MEAN CORPUSCULAR HEMOGLOBIN 28.5 pg (27.0-33.0); MEAN CORPUSCULAR HGB CONC 32.2 g/dl (32.0-36.5); MEAN CORPUSCULAR VOLUME 88.5 fl (80.0-96.0); MONO # 0.3 10^3/uL (0.0-0.8); MONO % 10.9 % (2.0-8.0); NEUTROPHILS # 1.7 10^3/uL (1.5-8.5); NEUTROPHILS % 54.2 % (36.0-66.0); WHITE BLOOD COUNT 3.1 10^3/uL (4.0-10.0)
[2022-07-06 06:31] LABS: PLATELET COUNT, AUTOMATED 55 10^3/uL (150-450)
[2022-07-06 06:39] LABS: ALBUMIN 2.3 G/DL (3.2-5.2); ALKALINE PHOSPHATASE 62 U/L (46-116); ALT/SGPT 27 U/L (7.0-40); AST/SGOT 56 U/L (<34); BILIRUBIN,TOTAL 1.3 MG/DL (0.3-1.2); BLOOD UREA NITROGEN 8 MG/DL (9-23); CALCIUM LEVEL 7.3 MG/DL (8.5-10.1); CARBON DIOXIDE LEVEL 24 MMOL/L (20-31); CHLORIDE LEVEL 103 MMOL/L (98-107); CREATININE FOR GFR 0.38 MG/DL (0.70-1.30); GLOMERULAR FILTRATION RATE > 60.0 (>56); GLUCOSE, FASTING 91 MG/DL (60-100); MAGNESIUM LEVEL 1.6 MG/DL (1.8-2.4); SODIUM LEVEL 133 MMOL/L (136-145); TOTAL PROTEIN 6.8 G/DL (5.7-8.2)
[2022-07-06] MEDS: LACTULOSE 20GM/30ML SYRUP UDC PO SCH (08:15)
[2022-07-06] MEDS: MAGNESIUM OXIDE 400MG TAB (MAG-OX) PO SCH (08:16)
[2022-07-06] MEDS: FUROSEMIDE 20 MG TAB PO SCH (08:16)
[2022-07-06] MEDS: POTASSIUM CHLORIDE 10MEQ SR TABLET PO SCH (08:16)
[2022-07-06] MEDS ORDERED: DOXYCYCLINE HYCLATE 100MG TABLET PO SCH (09:00)
[2022-07-06] MEDS ORDERED: MAG SULF 1GM/100ML (MAG RUN) 1 GM in IV 1 EA IV ONE (09:00)
[2022-07-06] MEDS: MAG SULF 1GM/100ML (MAG RUN) 1 GM in IV 1 EA IV SCH ×2 (11:00→11:32)
[2022-07-06] MEDS ORDERED: DOXY100T PO (11:03)
[2022-07-06] MEDS ORDERED: ALDA25TA2 PO (11:03)
[2022-07-06] MEDS ORDERED: FURO20TA2 PO (11:03)
[2022-07-06] MEDS ORDERED: MAGN400T2 PO (11:03)
== END 2022-07-06 14:10 | disposition home or self-care (01) | DRG 383 ==
LOC: M ED 09:32 → M ED INP 15:17 → M PCU 20:18 → OBSVTOIN 07-05 17:40 → INTOOBSV 07-05 17:40
PROVIDERS: ADMIT Internal Medicine; ATTEND Internal Medicine
PROC: B246ZZZ Ultrasonography of Right and Left Heart (ICD-10-PCS; principal; 2022-07-05)
DX: L03.115 Cellulitis of right lower limb (principal); D61.818 Other pancytopenia; E87.20 Acidosis, unspecified; K76.6 Portal hypertension; D69.6 Thrombocytopenia, unspecified; E87.1 Hypo-osmolality and hyponatremia; I27.20 Pulmonary hypertension, unspecified; R16.1 Splenomegaly, not elsewhere classified; D73.89 Other diseases of spleen; G62.9 Polyneuropathy, unspecified; E83.42 Hypomagnesemia; F15.20 Other stimulant dependence, uncomplicated; F11.20 Opioid dependence, uncomplicated; F14.20 Cocaine dependence, uncomplicated; I87.2 Venous insufficiency (chronic) (peripheral); L97.919 Non-pressure chronic ulcer of unspecified part of right lower leg with unspecified severity; L97.929 Non-pressure chronic ulcer of unspecified part of left lower leg with unspecified severity; K74.60 Unspecified cirrhosis of liver; B95.0 Streptococcus, group A, as the cause of diseases classified elsewhere; B95.62 Methicillin resistant Staphylococcus aureus infection as the cause of diseases classified elsewhere; B18.2 Chronic viral hepatitis C; R06.09 Other forms of dyspnea; E87.6 Hypokalemia; R59.0 Localized enlarged lymph nodes; Z79.899 Other long term (current) drug therapy; Z87.891 Personal history of nicotine dependence

== ENCOUNTER 2022-07-28 00:49 | Inpatient (IN) | payer OTHER ==
[~2022-07-28] VITALS: Ht 190.5 cm; Wt 91.0 kg
[2022-07-28] VITALS (21 sets, daily range): BP systolic 110–130; BP diastolic 68–85; O2SAT 95–100
[~2022-07-28 00:49] MED LIST changes: +ALDA25TA2 PO; +DOXY100T PO; +FURO20TA2 PO; +MAGN400T2 PO
[2022-07-28 01:28] LABS: BASO % 0.3 % (0.0-1.0); HEMATOCRIT 36.4 % (42.0-52.0); HEMOGLOBIN 12.1 g/dl (13.5-17.5); LYMPH # 0.3 10^3/uL (1.5-5.0); LYMPH % 9.7 % (24.0-44.0); MEAN CORPUSCULAR HEMOGLOBIN 28.5 pg (27.0-33.0); MEAN CORPUSCULAR HGB CONC 33.2 g/dl (32.0-36.5); MEAN CORPUSCULAR VOLUME 85.6 fl (80.0-96.0); MONO # 0.3 10^3/uL (0.0-0.8); MONO % 7.9 % (2.0-8.0); NEUTROPHILS # 2.8 10^3/uL (1.5-8.5); NEUTROPHILS % 81.2 % (36.0-66.0); RED BLOOD COUNT 4.25 10^6/uL (4.30-6.10); WHITE BLOOD COUNT 3.4 10^3/uL (4.0-10.0)
[2022-07-28 01:39] LABS: PLATELET COUNT, AUTOMATED 42 10^3/uL (150-450)
[2022-07-28 01:44] LABS: ERYTHROCYTE SEDIMENTATION RATE 85 mm/hr (0-20)
[2022-07-28 01:59] LABS: LIPASE 18 U/L (12-53)
[2022-07-28 01:59] LABS: RSV AMPLIFICATION NEGATIVE (NEGATIVE)
[2022-07-28 02:01] LABS: ALBUMIN 2.5 G/DL (3.2-5.2); ALKALINE PHOSPHATASE 59 U/L (46-116); ALT/SGPT 19 U/L (7.0-40); AST/SGOT 55 U/L (<34); BILIRUBIN,TOTAL 2.1 MG/DL (0.3-1.2); BLOOD UREA NITROGEN 13 MG/DL (9-23); CALCIUM LEVEL 7.2 MG/DL (8.5-10.1); CARBON DIOXIDE LEVEL 23 MMOL/L (20-31); CHLORIDE LEVEL 97 MMOL/L (98-107); CREATININE FOR GFR 0.62 MG/DL (0.70-1.30); GLOMERULAR FILTRATION RATE > 60.0 (>56); GLUCOSE, FASTING 122 MG/DL (60-100); POTASSIUM SERUM 4.1 MMOL/L (3.5-5.1); SODIUM LEVEL 126 MMOL/L (136-145); TOTAL PROTEIN 7.8 G/DL (5.7-8.2)
[2022-07-28] MEDS ORDERED: ACETAMINOPHEN TAB 650MG DOSE (2X325MG) PO ONE (03:25)
[2022-07-28] MEDS ORDERED: CEFTAROLINE FOSAMIL 600 MG in D5W MINI-BAG PLUS 50 ML IV ONE (03:25)
[2022-07-28] MEDS ORDERED: NS 1,000 ML IV SCH (04:10)
[2022-07-28 04:50] LABS: VENOUS HCO3 21.7 MMOL/L (23.0-27.0); VENOUS O2 SATURATION 98.4 % (60.0-80.0); VENOUS PARTIAL PRESSURE CO2 27.1 mmHg (38.0-50.0); VENOUS PARTIAL PRESSURE O2 106.2 mmHg (30.0-50.0); VENOUS PH 7.522 UNITS (7.330-7.430); VENOUS STANDARD HCO3 24.5 MMOL/L; VENOUS TOTAL CO2 22.6 MMOL/L (24.0-28.0)
[2022-07-28 04:56] LABS: BASO % 0.4 % (0.0-1.0); HEMATOCRIT 32.1 % (42.0-52.0); HEMOGLOBIN 10.9 g/dl (13.5-17.5); LYMPH # 0.3 10^3/uL (1.5-5.0); LYMPH % 12.1 % (24.0-44.0); MEAN CORPUSCULAR HEMOGLOBIN 28.5 pg (27.0-33.0); MEAN CORPUSCULAR VOLUME 83.8 fl (80.0-96.0); MONO # 0.3 10^3/uL (0.0-0.8); NEUTROPHILS # 2.1 10^3/uL (1.5-8.5); NEUTROPHILS % 76.1 % (36.0-66.0); RED BLOOD COUNT 3.83 10^6/uL (4.30-6.10); WHITE BLOOD COUNT 2.8 10^3/uL (4.0-10.0)
[2022-07-28 04:57] LABS: PLATELET COUNT, AUTOMATED 35 10^3/uL (150-450)
[2022-07-28 05:05] LABS: INR 1.72; PROTHROMBIN TIME 20.5 SECONDS (12.5-14.5)
[2022-07-28 05:06] LABS: PARTIAL THROMBOPLASTIN TIME 40.5 SECONDS (24.8-34.2)
[2022-07-28 05:15] LABS: SODIUM,RANDOM URINE 123 MMOL/L
[2022-07-28] MEDS ORDERED: ONDANSETRON 4MG 2ML VIAL IV PRN (05:15)
[2022-07-28 05:21] LABS: BARBITURATES URINE NEGATIVE (NEGATIVE); BENZODIAZEPINES URINE NEGATIVE (NEGATIVE); COCAINE METABOLITE URINE NEGATIVE (NEGATIVE); METHADONE URINE NEGATIVE (NEGATIVE)
[2022-07-28 05:22] LABS: AMPHETAMINES LEVEL URINE POSITIVE (NEGATIVE); CANNABINOIDS URINE POSITIVE (NEGATIVE); OPIATES URINE NEGATIVE (NEGATIVE); PHENCYCLIDINE URINE NEGATIVE (NEGATIVE)
[2022-07-28 05:25] LABS: ALKALINE PHOSPHATASE 50 U/L (46-116); ALT/SGPT 14 U/L (7.0-40); AST/SGOT 29 U/L (<34); BILIRUBIN,TOTAL 1.7 MG/DL (0.3-1.2); BLOOD UREA NITROGEN 14 MG/DL (9-23); CALCIUM LEVEL 6.7 MG/DL (8.5-10.1); CARBON DIOXIDE LEVEL 22 MMOL/L (20-31); CHLORIDE LEVEL 99 MMOL/L (98-107); CREATININE FOR GFR 0.52 MG/DL (0.70-1.30); GLOMERULAR FILTRATION RATE > 60.0 (>56); GLUCOSE, FASTING 116 MG/DL (60-100); POTASSIUM SERUM 3.4 MMOL/L (3.5-5.1); SODIUM LEVEL 126 MMOL/L (136-145); TOTAL PROTEIN 6.3 G/DL (5.7-8.2)
[2022-07-28] MEDS ORDERED: SERT50TA29 PO (05:55)
[2022-07-28] MEDS ORDERED: QUET50TA4 PO (05:55)
[2022-07-28] MEDS ORDERED: HOME MED LIST COMPLETE! XX SCH (05:55)
[2022-07-28] MEDS ORDERED: NEUR800T PO (05:55)
[2022-07-28 06:07] LABS: HEMATOCRIT 33.1 % (42.0-52.0); HEMOGLOBIN 11.2 g/dl (13.5-17.5)
[2022-07-28] MEDS ORDERED: POTASSIUM CHLORIDE 10MEQ SR TABLET PO ONE (09:00)
[2022-07-28] MEDS: PANTOPRAZOLE 40MG VIAL IV SCH ×2 (09:10→21:31)
[2022-07-28] MEDS: PIPERACILLIN/TAZOBACTAM SOD 3.375 GM in D5W MINI-BAG PLUS 50 ML IV SCH ×3 (09:11→20:36)
[2022-07-28] MEDS ORDERED: VANCOMYCIN HCL 750 MG, VIAL MATE ADAPTER 1 EACH in D5W 250 ML IV SCH (09:20)
[2022-07-28] MEDS ORDERED: LACTULOSE 20GM/30ML SYRUP UDC PO PRN (09:25)
[2022-07-28] MEDS ORDERED: VANCOMYCIN HCL 1,000 MG, VIAL MATE ADAPTER 1 EACH in D5W 250 ML IV ONE (10:00)
[2022-07-28 10:02] LABS: OSMOLALITY SERUM 261 MOSM/KG (275-295)
[2022-07-28] MEDS ORDERED: ISOVUE-370 76% 100ML VIAL As Ordered ONE (10:16)
[2022-07-28 10:32] LABS: HEPATITIS B SURFACE ANTIGEN NEGATIVE (NEGATIVE)
[2022-07-28] MEDS: cloNIDine 0.1MG TABLET PO SCH (10:34)
[2022-07-28] MEDS: LACTULOSE 20GM/30ML SYRUP UDC PO SCH ×2 (10:39→13:38)
[2022-07-28 10:44] LABS: HIV 1&2 SCREEN NEGATIVE (NEGATIVE)
[2022-07-28 10:52] LABS: HEPATITIS B CORE ANTIBODY IGM NEGATIVE (NEGATIVE)
[2022-07-28] MEDS ORDERED: VANCOMYCIN HCL 750 MG, VIAL MATE ADAPTER 1 EACH in D5W 250 ML IV ONE (11:00)
[2022-07-28] MEDS ORDERED: ELIQ5TAB PO (11:14)
[2022-07-28] MEDS ORDERED: DOXY-444 PO (11:14)
[2022-07-28 11:26] LABS: HEPATITIS C VIRUS ABY INDEX 3.3 INDEX (<0.8)
[2022-07-28 12:29] LABS: COMPLEMENT C3 97.1 MG/DL (90.0-170.0); COMPLEMENT C4 18.7 MG/DL (12-36)
[2022-07-28 12:40] LABS: BLOOD UREA NITROGEN 15 MG/DL (9-23); CALCIUM LEVEL 6.7 MG/DL (8.5-10.1); CARBON DIOXIDE LEVEL 24 MMOL/L (20-31); CHLORIDE LEVEL 98 MMOL/L (98-107); CREATININE FOR GFR 0.48 MG/DL (0.70-1.30); GLOMERULAR FILTRATION RATE > 60.0 (>56); GLUCOSE, FASTING 115 MG/DL (60-100); POTASSIUM SERUM 3.5 MMOL/L (3.5-5.1); SODIUM LEVEL 129 MMOL/L (136-145)
[2022-07-28 15:02] LABS: BLOOD UREA NITROGEN 14 MG/DL (9-23); CALCIUM LEVEL 7.1 MG/DL (8.5-10.1); CARBON DIOXIDE LEVEL 24 MMOL/L (20-31); CHLORIDE LEVEL 99 MMOL/L (98-107); CREATININE FOR GFR 0.48 MG/DL (0.70-1.30); GLOMERULAR FILTRATION RATE > 60.0 (>56); GLUCOSE, FASTING 147 MG/DL (60-100); POTASSIUM SERUM 3.5 MMOL/L (3.5-5.1); SODIUM LEVEL 127 MMOL/L (136-145)
[2022-07-28 16:31] LABS: BLOOD UREA NITROGEN 13 MG/DL (9-23); CALCIUM LEVEL 6.8 MG/DL (8.5-10.1); CARBON DIOXIDE LEVEL 22 MMOL/L (20-31); CHLORIDE LEVEL 99 MMOL/L (98-107); CREATININE FOR GFR 0.47 MG/DL (0.70-1.30); GLOMERULAR FILTRATION RATE > 60.0 (>56); GLUCOSE, FASTING 125 MG/DL (60-100); POTASSIUM SERUM 3.6 MMOL/L (3.5-5.1); SODIUM LEVEL 129 MMOL/L (136-145)
[2022-07-28] MEDS: GABAPENTIN 400MG CAP PO SCH ×2 (17:11→21:32)
[2022-07-28] MEDS ORDERED: VANCOMYCIN HCL 1,000 MG, VIAL MATE ADAPTER 1 EACH in D5W 250 ML IV SCH (18:00)
[2022-07-28] MEDS ORDERED: QUEtiapine FUMARATE 50MG TAB PO SCH (21:00)
[2022-07-28] MEDS ORDERED: LACTULOSE 20GM/30ML SYRUP UDC PO SCH (21:00)
[2022-07-29] VITALS (15 sets, daily range): BP systolic 102–126; BP diastolic 60–95; O2SAT 96–98
[2022-07-29] MEDS: PIPERACILLIN/TAZOBACTAM SOD 3.375 GM in D5W MINI-BAG PLUS 50 ML IV SCH ×3 (02:54→14:28)
[2022-07-29 05:26] LABS: BASO % 0.5 % (0.0-1.0); EOS # 0.1 10^3/uL (0.0-0.5); EOS % 6.3 % (0.0-3.0); HEMATOCRIT 33.9 % (42.0-52.0); HEMOGLOBIN 11.1 g/dl (13.5-17.5); LYMPH # 0.4 10^3/uL (1.5-5.0); LYMPH % 15.8 % (24.0-44.0); MEAN CORPUSCULAR HEMOGLOBIN 28.4 pg (27.0-33.0); MEAN CORPUSCULAR HGB CONC 32.7 g/dl (32.0-36.5); MEAN CORPUSCULAR VOLUME 86.7 fl (80.0-96.0); MONO # 0.4 10^3/uL (0.0-0.8); MONO % 15.8 % (2.0-8.0); NEUTROPHILS # 1.3 10^3/uL (1.5-8.5); NEUTROPHILS % 60.7 % (36.0-66.0); PLATELET COUNT, AUTOMATED 35 10^3/uL (150-450); RED BLOOD COUNT 3.91 10^6/uL (4.30-6.10); WHITE BLOOD COUNT 2.2 10^3/uL (4.0-10.0)
[2022-07-29 05:50] LABS: ALBUMIN 1.6 G/DL (3.2-5.2); ALKALINE PHOSPHATASE 43 U/L (46-116); ALT/SGPT 13 U/L (7.0-40); AST/SGOT 26 U/L (<34); BILIRUBIN,TOTAL 1.1 MG/DL (0.3-1.2); BLOOD UREA NITROGEN 12 MG/DL (9-23); CARBON DIOXIDE LEVEL 23 MMOL/L (20-31); CHLORIDE LEVEL 103 MMOL/L (98-107); CREATININE FOR GFR 0.53 MG/DL (0.70-1.30); GLOMERULAR FILTRATION RATE > 60.0 (>56); GLUCOSE, FASTING 151 MG/DL (60-100); POTASSIUM SERUM 3.4 MMOL/L (3.5-5.1); SODIUM LEVEL 132 MMOL/L (136-145); TOTAL PROTEIN 5.4 G/DL (5.7-8.2)
[2022-07-29] MEDS: PANTOPRAZOLE 40MG VIAL IV SCH ×2 (08:41→20:26)
[2022-07-29] MEDS: cloNIDine 0.1MG TABLET PO SCH (08:43)
[2022-07-29] MEDS: GABAPENTIN 400MG CAP PO SCH ×3 (08:43→20:26)
[2022-07-29] MEDS: SERTRALINE HCL 50 MG TAB PO SCH (08:43)
[2022-07-29] MEDS ORDERED: POTASSIUM CHLORIDE 10MEQ SR TABLET PO ONE (09:00)
[2022-07-29] MEDS: metroNIDAZOLE (FLAGYL) 500MG TABLET PO SCH ×2 (16:34→20:26)
[2022-07-29] MEDS: CIPROFLOXACIN 500MG TABLET PO SCH (17:47)
[2022-07-29] MEDS ORDERED: METHADONE 10MG TAB PO ONE ×2 (18:00→20:00)
[2022-07-29] MEDS: IPRATROPIUM 0.5MG/ALBUTEROL 2.5MG INH SOL UD 3ML (DUONEB) NEB PRN (18:19)
[2022-07-29] MEDS: traZODone 50 MG TAB PO SCH (20:30)
[2022-07-29] MEDS ORDERED: DOXYCYCLINE HYCLATE 100MG TABLET PO SCH (21:00)
[2022-07-30] VITALS (19 sets, daily range): BP systolic 113–125; BP diastolic 73–86; O2SAT 94–98
[2022-07-30 06:34] LABS: BASO % 0.5 % (0.0-1.0); EOS # 0.2 10^3/uL (0.0-0.5); EOS % 10.6 % (0.0-3.0); HEMOGLOBIN 10.3 g/dl (13.5-17.5); LYMPH # 0.6 10^3/uL (1.5-5.0); LYMPH % 26.1 % (24.0-44.0); MEAN CORPUSCULAR HEMOGLOBIN 27.9 pg (27.0-33.0); MEAN CORPUSCULAR HGB CONC 32.2 g/dl (32.0-36.5); MEAN CORPUSCULAR VOLUME 86.7 fl (80.0-96.0); MONO # 0.3 10^3/uL (0.0-0.8); MONO % 14.7 % (2.0-8.0); NEUTROPHILS % 47.6 % (36.0-66.0); RED BLOOD COUNT 3.69 10^6/uL (4.30-6.10); WHITE BLOOD COUNT 2.2 10^3/uL (4.0-10.0)
[2022-07-30] MEDS: CIPROFLOXACIN 500MG TABLET PO SCH ×2 (06:35→17:42)
[2022-07-30 06:37] LABS: PLATELET COUNT, AUTOMATED 42 10^3/uL (150-450)
[2022-07-30 06:50] LABS: ALBUMIN 1.6 G/DL (3.2-5.2); ALKALINE PHOSPHATASE 47 U/L (46-116); ALT/SGPT 21 U/L (7.0-40); AST/SGOT 43 U/L (<34); BILIRUBIN,TOTAL 0.8 MG/DL (0.3-1.2); BLOOD UREA NITROGEN 10 MG/DL (9-23); CALCIUM LEVEL 6.8 MG/DL (8.5-10.1); CARBON DIOXIDE LEVEL 23 MMOL/L (20-31); CHLORIDE LEVEL 110 MMOL/L (98-107); CREATININE FOR GFR 0.53 MG/DL (0.70-1.30); GLOMERULAR FILTRATION RATE > 60.0 (>56); GLUCOSE, FASTING 90 MG/DL (60-100); POTASSIUM SERUM 3.5 MMOL/L (3.5-5.1); SODIUM LEVEL 139 MMOL/L (136-145); TOTAL PROTEIN 5.3 G/DL (5.7-8.2)
[2022-07-30] MEDS: cloNIDine 0.1MG TABLET PO SCH (09:31)
[2022-07-30] MEDS: PANTOPRAZOLE 40MG VIAL IV SCH (09:31)
[2022-07-30] MEDS: GABAPENTIN 400MG CAP PO SCH ×3 (09:31→20:45)
[2022-07-30] MEDS: METHADONE 10MG TAB PO SCH (09:32)
[2022-07-30] MEDS: SERTRALINE HCL 50 MG TAB PO SCH (09:32)
[2022-07-30] MEDS: metroNIDAZOLE (FLAGYL) 500MG TABLET PO SCH ×3 (09:32→20:45)
[2022-07-30] MEDS ORDERED: ISOVUE-370 76% 100ML VIAL As Ordered ONE (10:03)
[2022-07-30] MEDS: IPRATROPIUM 0.5MG/ALBUTEROL 2.5MG INH SOL UD 3ML (DUONEB) NEB PRN (20:48)
[2022-07-30] MEDS: traZODone 50 MG TAB PO SCH (20:50)
[2022-07-30] MEDS ORDERED: QUEtiapine FUMARATE 50MG TAB PO ONE (21:45)
[2022-07-31 05:57] VITALS: BP 123/78
[2022-07-31] MEDS: CIPROFLOXACIN 500MG TABLET PO SCH (06:09)
[2022-07-31 06:15] LABS: BASO % 0.5 % (0.0-1.0); EOS # 0.2 10^3/uL (0.0-0.5); HEMATOCRIT 32.1 % (42.0-52.0); HEMOGLOBIN 10.4 g/dl (13.5-17.5); LYMPH # 0.5 10^3/uL (1.5-5.0); LYMPH % 28.3 % (24.0-44.0); MEAN CORPUSCULAR HEMOGLOBIN 28.3 pg (27.0-33.0); MEAN CORPUSCULAR HGB CONC 32.4 g/dl (32.0-36.5); MEAN CORPUSCULAR VOLUME 87.5 fl (80.0-96.0); MONO # 0.3 10^3/uL (0.0-0.8); MONO % 14.7 % (2.0-8.0); NEUTROPHILS % 42.4 % (36.0-66.0); RED BLOOD COUNT 3.67 10^6/uL (4.30-6.10); WHITE BLOOD COUNT 1.8 10^3/uL (4.0-10.0)
[2022-07-31 06:32] LABS: ALBUMIN 1.6 G/DL (3.2-5.2); ALKALINE PHOSPHATASE 48 U/L (46-116); ALT/SGPT 20 U/L (7.0-40); AST/SGOT 45 U/L (<34); BILIRUBIN,TOTAL 0.8 MG/DL (0.3-1.2); BLOOD UREA NITROGEN 8 MG/DL (9-23); CALCIUM LEVEL 6.9 MG/DL (8.5-10.1); CARBON DIOXIDE LEVEL 23 MMOL/L (20-31); CHLORIDE LEVEL 109 MMOL/L (98-107); CREATININE FOR GFR 0.44 MG/DL (0.70-1.30); GLOMERULAR FILTRATION RATE > 60.0 (>56); GLUCOSE, FASTING 91 MG/DL (60-100); POTASSIUM SERUM 3.5 MMOL/L (3.5-5.1); SODIUM LEVEL 139 MMOL/L (136-145); TOTAL PROTEIN 5.3 G/DL (5.7-8.2)
[2022-07-31 06:49] LABS: NEUTROPHILS # 0.8 10^3/uL (1.5-8.5); PLATELET COUNT, AUTOMATED 44 10^3/uL (150-450)
[2022-07-31] MEDS: SERTRALINE HCL 50 MG TAB PO SCH (08:23)
[2022-07-31] MEDS: GABAPENTIN 400MG CAP PO SCH ×3 (08:23→21:35)
[2022-07-31] MEDS: metroNIDAZOLE (FLAGYL) 500MG TABLET PO SCH ×2 (08:23→15:24)
[2022-07-31] MEDS: METHADONE 10MG TAB PO SCH (08:24)
[2022-07-31] MEDS: cloNIDine 0.1MG TABLET PO SCH (08:24)
[2022-07-31 08:25] VITALS: BP 129/84
[2022-07-31 08:32] LABS: INR 1.3; PROTHROMBIN TIME 16.4 SECONDS (12.5-14.5)
[2022-07-31 08:56] LABS: IRON (FE) 43 UG/DL (65-175); PERCENT SATURATION 24.4 % (19.7-50.0); TOTAL IRON BINDING CAPACITY 176 UG/DL (250-425)
[2022-07-31 08:58] LABS: FERRITIN 112.2 NG/ML (10.5-307.3)
[2022-07-31 08:59] LABS: FOLATE 12.15 NG/ML (>5.4)
[2022-07-31] MEDS ORDERED: FILGRASTIM 480 MCG/0.8 ML SYRINGE **SC ADMINISTRATION ONLY SC SCH (09:00)
[2022-07-31 09:30] LABS: HIV 1&2 SCREEN NEGATIVE (NEGATIVE)
[2022-07-31 14:00] VITALS: BP 131/86
[2022-07-31 21:00] VITALS: BP 123/76
[2022-07-31] MEDS: AUGMENTIN 875 MG TAB PO SCH (21:35)
[2022-07-31] MEDS: QUEtiapine FUMARATE 50MG TAB PO SCH (21:35)
[2022-08-01 06:00] VITALS: BP 126/78
[2022-08-01 06:39] LABS: BASO % 0.4 % (0.0-1.0); EOS # 0.3 10^3/uL (0.0-0.5); EOS % 4.8 % (0.0-3.0); HEMATOCRIT 32.5 % (42.0-52.0); HEMOGLOBIN 10.5 g/dl (13.5-17.5); LYMPH # 0.5 10^3/uL (1.5-5.0); LYMPH % 9.7 % (24.0-44.0); MEAN CORPUSCULAR HEMOGLOBIN 28.6 pg (27.0-33.0); MEAN CORPUSCULAR HGB CONC 32.3 g/dl (32.0-36.5); MEAN CORPUSCULAR VOLUME 88.6 fl (80.0-96.0); MONO # 0.4 10^3/uL (0.0-0.8); MONO % 6.6 % (2.0-8.0); NEUTROPHILS % 73.9 % (36.0-66.0); RED BLOOD COUNT 3.67 10^6/uL (4.30-6.10); WHITE BLOOD COUNT 5.4 10^3/uL (4.0-10.0)
[2022-08-01 06:40] LABS: PLATELET COUNT, AUTOMATED 47 10^3/uL (150-450)
[2022-08-01 07:15] LABS: ALBUMIN 1.9 G/DL (3.2-5.2); ALKALINE PHOSPHATASE 58 U/L (46-116); ALT/SGPT 23 U/L (7.0-40); AST/SGOT 45 U/L (<34); BLOOD UREA NITROGEN 7 MG/DL (9-23); CALCIUM LEVEL 7.3 MG/DL (8.5-10.1); CARBON DIOXIDE LEVEL 25 MMOL/L (20-31); CHLORIDE LEVEL 106 MMOL/L (98-107); CREATININE FOR GFR 0.45 MG/DL (0.70-1.30); GLOMERULAR FILTRATION RATE > 60.0 (>56); GLUCOSE, FASTING 106 MG/DL (60-100); POTASSIUM SERUM 3.4 MMOL/L (3.5-5.1); SODIUM LEVEL 137 MMOL/L (136-145); TOTAL PROTEIN 5.9 G/DL (5.7-8.2)
[2022-08-01] MEDS: AUGMENTIN 875 MG TAB PO SCH ×2 (08:45→20:30)
[2022-08-01] MEDS: cloNIDine 0.1MG TABLET PO SCH (08:45)
[2022-08-01] MEDS: GABAPENTIN 400MG CAP PO SCH ×3 (08:45→20:30)
[2022-08-01] MEDS: METHADONE 10MG TAB PO SCH (08:46)
[2022-08-01] MEDS: SERTRALINE HCL 50 MG TAB PO SCH (08:46)
[2022-08-01 08:48] VITALS: BP 124/80
[2022-08-01] MEDS: POTASSIUM CHLORIDE 10MEQ SR TABLET PO SCH (10:36)
[2022-08-01 14:00] VITALS: BP 132/85
[2022-08-01 20:00] VITALS: BP 138/87
[2022-08-01] MEDS: QUEtiapine FUMARATE 50MG TAB PO SCH (20:30)
[2022-08-02 06:00] VITALS: BP 128/86
[2022-08-02 06:19] LABS: BASO % 0.7 % (0.0-1.0); EOS # 0.3 10^3/uL (0.0-0.5); EOS % 6.4 % (0.0-3.0); HEMATOCRIT 32.1 % (42.0-52.0); HEMOGLOBIN 10.5 g/dl (13.5-17.5); LYMPH # 0.7 10^3/uL (1.5-5.0); LYMPH % 17.3 % (24.0-44.0); MEAN CORPUSCULAR HEMOGLOBIN 28.7 pg (27.0-33.0); MEAN CORPUSCULAR HGB CONC 32.7 g/dl (32.0-36.5); MEAN CORPUSCULAR VOLUME 87.7 fl (80.0-96.0); MONO # 0.4 10^3/uL (0.0-0.8); MONO % 9.4 % (2.0-8.0); NEUTROPHILS # 2.5 10^3/uL (1.5-8.5); RED BLOOD COUNT 3.66 10^6/uL (4.30-6.10)
[2022-08-02 06:20] LABS: PLATELET COUNT, AUTOMATED 54 10^3/uL (150-450)
[2022-08-02 06:59] LABS: ALBUMIN 1.8 G/DL (3.2-5.2); ALKALINE PHOSPHATASE 63 U/L (46-116); ALT/SGPT 11 U/L (7.0-40); AST/SGOT 33 U/L (<34); BILIRUBIN,TOTAL 0.7 MG/DL (0.3-1.2); BLOOD UREA NITROGEN 7 MG/DL (9-23); CALCIUM LEVEL 7.5 MG/DL (8.5-10.1); CARBON DIOXIDE LEVEL 28 MMOL/L (20-31); CHLORIDE LEVEL 105 MMOL/L (98-107); CREATININE FOR GFR 0.41 MG/DL (0.70-1.30); GLOMERULAR FILTRATION RATE > 60.0 (>56); GLUCOSE, FASTING 91 MG/DL (60-100); POTASSIUM SERUM 3.9 MMOL/L (3.5-5.1); SODIUM LEVEL 137 MMOL/L (136-145)
[2022-08-02] MEDS: SERTRALINE HCL 50 MG TAB PO SCH (09:46)
[2022-08-02] MEDS: METHADONE 10MG TAB PO SCH (09:46)
[2022-08-02] MEDS: cloNIDine 0.1MG TABLET PO SCH (09:47)
[2022-08-02] MEDS: POTASSIUM CHLORIDE 10MEQ SR TABLET PO SCH (09:47)
[2022-08-02] MEDS: AUGMENTIN 875 MG TAB PO SCH ×2 (09:47→20:05)
[2022-08-02] MEDS: GABAPENTIN 400MG CAP PO SCH ×3 (09:52→20:06)
[2022-08-02] MEDS: QUEtiapine FUMARATE 50MG TAB PO SCH (20:06)
[2022-08-02] MEDS ORDERED: RAMELTEON 8 MG TAB (ROZEREM) PO PRN (20:25)
[2022-08-03 05:51] VITALS: BP 123/84
[2022-08-03 06:15] LABS: BASO % 0.6 % (0.0-1.0); EOS # 0.3 10^3/uL (0.0-0.5); EOS % 7.6 % (0.0-3.0); HEMATOCRIT 34.4 % (42.0-52.0); HEMOGLOBIN 11.2 g/dl (13.5-17.5); LYMPH # 0.6 10^3/uL (1.5-5.0); LYMPH % 17.4 % (24.0-44.0); MEAN CORPUSCULAR HEMOGLOBIN 28.8 pg (27.0-33.0); MEAN CORPUSCULAR HGB CONC 32.6 g/dl (32.0-36.5); MEAN CORPUSCULAR VOLUME 88.4 fl (80.0-96.0); MONO # 0.4 10^3/uL (0.0-0.8); MONO % 10.8 % (2.0-8.0); NEUTROPHILS # 2.1 10^3/uL (1.5-8.5); NEUTROPHILS % 61.9 % (36.0-66.0); RED BLOOD COUNT 3.89 10^6/uL (4.30-6.10); WHITE BLOOD COUNT 3.4 10^3/uL (4.0-10.0)
[2022-08-03 06:16] LABS: PLATELET COUNT, AUTOMATED 64 10^3/uL (150-450)
[2022-08-03 06:43] LABS: ALKALINE PHOSPHATASE 68 U/L (46-116); ALT/SGPT 19 U/L (7.0-40); AST/SGOT 30 U/L (<34); BILIRUBIN,TOTAL 0.8 MG/DL (0.3-1.2); BLOOD UREA NITROGEN 11 MG/DL (9-23); CALCIUM LEVEL 7.7 MG/DL (8.5-10.1); CARBON DIOXIDE LEVEL 27 MMOL/L (20-31); CHLORIDE LEVEL 103 MMOL/L (98-107); GLOMERULAR FILTRATION RATE > 60.0 (>56); GLUCOSE, FASTING 108 MG/DL (60-100); POTASSIUM SERUM 4.3 MMOL/L (3.5-5.1); SODIUM LEVEL 135 MMOL/L (136-145); TOTAL PROTEIN 6.6 G/DL (5.7-8.2)
[2022-08-03 09:58] VITALS: BP 127/80
[2022-08-03] MEDS: GABAPENTIN 400MG CAP PO SCH (09:58)
[2022-08-03] MEDS: METHADONE 10MG TAB PO SCH (09:58)
[2022-08-03] MEDS: cloNIDine 0.1MG TABLET PO SCH (09:58)
[2022-08-03] MEDS: SERTRALINE HCL 50 MG TAB PO SCH (09:58)
[2022-08-03] MEDS: POTASSIUM CHLORIDE 10MEQ SR TABLET PO SCH (09:58)
[2022-08-03] MEDS: AUGMENTIN 875 MG TAB PO SCH (09:58)
[2022-08-04 03:11] LABS: COPPER PLASMA 95 ug/dL (69-132); VITAMIN B2 (RIBOFLAVIN) 150 ug/L (137-370)
== END 2022-08-03 14:20 | disposition home or self-care (01) | DRG 425 ==
LOC: EDBD 00:49 → M ED 00:49 → M ED INP 04:09 → M PCU 06:00 → M MSPAV 07-30 21:45
PROVIDERS: ADMIT Internal Medicine; ATTEND Internal Medicine
DX: E87.1 Hypo-osmolality and hyponatremia (principal); D61.818 Other pancytopenia; K76.6 Portal hypertension; D69.6 Thrombocytopenia, unspecified; F14.20 Cocaine dependence, uncomplicated; G62.9 Polyneuropathy, unspecified; K74.60 Unspecified cirrhosis of liver; B19.20 Unspecified viral hepatitis C without hepatic coma; E87.6 Hypokalemia; K57.30 Diverticulosis of large intestine without perforation or abscess without bleeding; F32.A Depression, unspecified; Z79.899 Other long term (current) drug therapy; I87.8 Other specified disorders of veins